=== PATIENT | female | born 1945 | race Caucasian/White ===

== ENCOUNTER 2019-01-14 21:49 | Emergency (ER) | payer MEDICARE, MEDICAID ==
[~2019-01-14] VITALS: Ht 157.5 cm; Wt 54.4 kg
[~2019-01-14 21:49] MED LIST: CITA10TA70 PO; DIVA500T PO; TYLENOL; topamax PO
--- OUTSIDE RECORDS SUMMARY | 2019-01-14 21:54 | XMS REPORT ---
Author Author SABA CONNORS Organization [facility] Address [address] [place] [address] Care Team Providers Care Material Cutter Name Role Phone SABA CONNORS Unavailable PROBLEMS Type Condition ICD9-CM Code MUF31-UE Code Onset Dates Condition Status SNOMED Code Problem Acquired hypothyroidism E03.9 Active 212223592 Problem Mixed hyperlipidemia E78.2 Active 403327343 Problem Late effect of stroke I69.30 Active 5006308325190 Problem Seizure disorder G40.909 Active 686309026 Problem Essential hypertension I10 Active 16055390 ALLERGIES No Information ENCOUNTERS Encounter Location Date Diagnosis [address] [address] Oct, Acquired hypothyroidism E03.9 ; Seizure disorder G40.909 ; Essential hypertension I10 and Mixed hyperlipidemia E78.[address] [address] Oct, [address] [address] Sep, Late effect of stroke I69.30 ; Acquired hypothyroidism E03.9 ; Seizure disorder G40.909 ; Essential hypertension I10 and Mixed hyperlipidemia E78.[address] [address] Sep, IMMUNIZATIONS No Known Immunizations SOCIAL HISTORY Never Assessed REASON FOR VISIT Med refill PLAN OF CARE VITAL SIGNS MEDICATIONS Medication Instructions Dosage Frequency Start Date End Date Duration Status Levetiracetam 500 MG Orally Twice a day 1 tablet 12h 06 Sep, 2018 30 day(s) Active RESULTS No Results PROCEDURES No Known procedures INSTRUCTIONS MEDICATIONS ADMINISTERED No Known Medications MEDICAL (GENERAL) HISTORY Type Description Date Medical History hyperlipidemia Medical History hypertension Medical History Hypothyroidism Medical History anemia Medical History acid reflux Medical History brain tumor Surgical History cholecystectomy Surgical History right hip replacement Surgical History brain tumor 1988 Surgical History leg surgery Surgical History exploratory laparoscopy Surgical History jaw wiring Hospitalization History surgical
--- OUTSIDE RECORDS SUMMARY | 2019-01-14 21:54 | XMS REPORT | Continuity of Care Document ---
Author Organization Unknown Address Unknown Allergies There is no data. Medications There is no data. Problems There is no data. Procedures There is no data. Results There is no data. Encounters ACCT No. Visit Date/Time Discharge Status Pt. Type Provider Facility Loc./Unit Complaint [id number] 11/15/2013 11:51:00 11/15/2013 23:59:59 CLS Outpatient [id number] 11/08/2013 12:34:00 11/08/2013 14:54:00 DIS Emergency
--- NOTE | 2019-01-14 22:01 | ED Fall/Injury ---
General Chief Complaint: Lower Extremity Stated Complaint: LT ANKLE INJ Source: patient, family (daughter and granddaughter) Exam Limitations: no limitations History of Present Illness Date Seen by Provider: January 14, 2019 Time Seen by Provider: 21:52 Initial Comments The patient presents to ER by private conveyance from home where she was staying with her daughter and had an unwitnessed fall where she lost her balance twisting her left ankle having a little swelling and pain mostly in the medial side of her foot, ankle and great toe. She denies striking her head or loss of consciousness. She is on aspirin. She has a history of stroke but no heart disease. She had a hemorrhagic and an ischemic stroke in the past. She's having no confusion weakness dysuria fevers chills cough shortness of breath or chest pain. No pain anywhere else besides her foot. Allergies and Home Medications Allergies Coded Allergies: No Known Drug Allergies (Unverified , 01/14/19) Home Medications Citalopram Hydrobromide 10 Mg Tablet, 10 MG PO DAILY, (Reported) Divalproex Sodium 500 Mg Tablet.dr, 500 MG PO TID, (Reported) [Tylenol 3] , Q4H Prescribed by: GREG THOMAS on 11/08/13 1447 [topamax] , 1 TAB PO BID, (Reported) Patient Home Medication List Home Medication List Reviewed: Yes Review of Systems Review of Systems Constitutional: No chills, No diaphoresis Eyes: Denies Blindness, Denies Drainage Ears, Nose, Mouth, Throat: denies ear pain, denies ear discharge Respiratory: No cough, No short of breath Cardiovascular: No chest pain, No edema Gastrointestinal: No abdominal pain, No constipation, No nausea Genitourinary: No discharge, No dysuria Past Gndhral-Kalors-Aoaojh Hx Patient Social History Recent Foreign Travel: No Contact w/Someone Who Travel: No Immunizations Up To Date Date of Pneumonia Vaccine: Aug 21, 2013 Date of Influenza Vaccine: Aug 21, 2013 Past Medical History Chronic Back Pain Physical Exam Vital Signs Vital Signs - First Documented 01/14/19 22:02 Temp 97.1 Pulse 78 Resp 18 B/P (MAP) 157/71 (99) Pulse Ox 98 O2 Delivery Room Air Capillary Refill : Height, Weight, BMI Height: 5'5" Weight: 151lbs. oz. 68.985965dq; BMI Method:Stated General Appearance: WD/WN, no apparent distress HEENT: PERRL/EOMI, normal ENT inspection, TMs normal, pharynx normal, other (negative for hemotympanum, alcocer sign or raccoon eyes) Cardiovascular: normal peripheral pulses, regular rate, rhythm, no edema Respiratory: no respiratory distress, no accessory muscle use Gastrointestinal: normal bowel sounds, non tender, soft Extremities: normal range of motion, non-tender, normal capillary refill Neurologic/Psychiatric: alert, normal mood/affect, oriented x 3, other Skin: normal color, warm/dry Carlos A Coma Score Best Eye Response: (4) Open Spontaneously Best Verbal Response: (5) Oriented Best Motor Response: (6) Obeys Commands Carlos A Total: 15 Progress/Results/Core Measures Results/Orders My Orders Orders - DAVION CONCEPCION Ct Head/Cervical Spine Wo (01/14/19 21:59) Ankle 3 View Left (01/14/19 21:59) Foot 3 View Left (01/14/19 21:59) Vital Signs/I&O 01/14/19 01/14/19 22:02 23:52 Temp 97.1 Pulse 78 68 Resp 18 18 B/P (MAP) 157/71 (99) 148/72 (97) Pulse Ox 98 98 O2 Delivery Room Air Room Air Diagnostic Imaging Diagonstic Imaging: CT (noncontrast) Plain Films/CT/US/NM/MRI: c-spine, head Comments No acute intracranial hemorrhage, mass effect, midline shift tumor or C-spine fracture or misalignment or subluxation. Reviewed: Reviewed by Me Diagonstic Imaging: Xray Plain Films/CT/US/NM/MRI: ankle (left), other (left foot) Comments No acute osseous abnormality. Joint spaces are maintained. Reviewed: Reviewed by Me Departure Impression Primary Impression: Sprain and strain of foot Additional Impression: Fall Qualified Codes: W19.XXXA - Unspecified fall, initial encounter Disposition: 01 HOME, SELF-CARE Condition: Stable Departure-Patient Inst. Decision time for Depature: 23:30 Referrals: MIGUEL SUERO MD (PCP/Family) Primary Care Physician Patient Instructions: Foot Sprain (DC) Add. Discharge Instructions: Ice your foot for the first 2 days. Wrap it with an Ángel bandage and keep it elevated. Stay off it when you don't need to use it. If you're still having significant pain 7-10 days out then follow up with your primary care doctor for reexamination for a possible occult fracture. Expect resolution in the first 2-3 weeks. Tylenol 1000 mg every 8 hours. All discharge instructions reviewed with patient and/or family. Voiced unde rstanding. DAVION CONCEPCION January 14, 2019 22:01
[2019-01-14 23:52] VITALS: BP 148/72
--- NOTE | 2019-01-15 06:31 | Diagnostic Imaging Report ---
PROCEDURE: CT head and CT cervical spine without contrast. TECHNIQUE: Multiple contiguous axial images were obtained through the brain and cervical spine without the use of intravenous contrast. Sagittal and coronal reformations through the cervical spine were then performed. Auto Exposure Controls were utilized during the CT exam to meet ALARA standards for radiation dose reduction. INDICATION: Fall, history of aneurysm. Comparison limited to images obtained during metabolic CT fusion brain PET performed in 2009. FINDINGS: CT head: Bilateral supratentorial right greater than left parenchymal calcifications are unchanged from the study of 2009. There are areas of adjacent parenchymal volume loss associated with these calcifications, chronic. Mild ventriculomegaly is congruent with the degree of sulcation likely reflective of a generalized component of atrophy having increased. No kyle hydrocephalus. There is no intracranial hemorrhage and no acute extra-axial fluid collection. No focal or generalized cerebral edema. Postsurgical changes to the calvarium chronic. No acute bony pathology revealed. No paranasal sinus air-fluid level. CT cervical spine: Cervical body heights maintained. The alignment anatomic. Paravertebral tissues showed no abnormality. No fluid collection. No cervical spinal fracture or dislocation. There are degenerative changes to the discs, endplates and facets throughout the cervical spine showing mild generalized progression from the comparison but no acute-appearing abnormality. IMPRESSION: 1. CT head: Mild progressive generalized cortical atrophy superimposed upon chronic coarse parenchymal calcifications with focal volume loss. No fracture deformity or acute pathology. No hemorrhage. 2. CT cervical spine: Progressive degenerative changes without fracture or traumatic malalignment, no acute-appearing abnormality. Dictated by: Dictated on workstation # [id number]
--- NOTE | 2019-01-15 07:02 | Diagnostic Imaging Report ---
Indication: Fall with pain Findings: Bony demineralization is noted which can make nondisplaced injuries radiographically imperceptible. A fracture cannot be identified. There is no dislocation. There is focal swelling about the ankle laterally. Impression: Swelling about the lateral ankle with likely bony demineralization. No fracture could be identified at three-view left foot. Dictated by: Dictated on workstation # [id number]
--- NOTE | 2019-01-15 07:04 | Diagnostic Imaging Report ---
Indication: Fall with pain Findings: Swelling about the ankle laterally and medially is present. No widening or disruption of the ankle mortise is found. There is bony demineralization which not only increases the risk of fracture but can make nondisplaced injuries radiographically imperceptible. No fracture line can be identified. The articular surfaces appeared smooth. Impression: Swelling about the ankle with bony demineralization. No identifiable fracture or widening of the mortise. Dictated by: Dictated on workstation # [id number]
== END 2019-01-14 23:52 | disposition home or self-care (01) ==
LOC: EDUNIT# 21:49 → ER FS 21:50
DX: S96.912A Strain of unspecified muscle and tendon at ankle and foot level, left foot, initial encounter (principal); R40.2142 Coma scale, eyes open, spontaneous, at arrival to emergency department; R40.2252 Coma scale, best verbal response, oriented, at arrival to emergency department; R40.2362 Coma scale, best motor response, obeys commands, at arrival to emergency department; Z86.73 Personal history of transient ischemic attack (TIA), and cerebral infarction without residual deficits; W19.XXXA Unspecified fall, initial encounter
CPT/HCPCS: 70450; 72125; 73610; 73630

== ENCOUNTER 2019-03-16 22:47 | Emergency (ER) | payer MEDICARE, MEDICAID ==
[~2019-03-16] VITALS: Ht 157.5 cm; Wt 54.9 kg
--- OUTSIDE RECORDS SUMMARY | 2019-03-16 22:54 | XMS REPORT | Continuity of Care Document ---
Author Organization Unknown Address Unknown Phone Unavailable Allergies Active Description Code Type Severity Reaction Onset Reported/Identified Relationship to Patient Clinical Status Yes No Known Drug Allergies [id number] Drug Allergy Unknown N/A 01/14/2019 Medications There is no data. Problems Date Dx Coded Attending Type Code Diagnosis Diagnosed By 11/08/2013 WILLIAM ELLIS, GREG Tomlinson Ot 729.5 PAIN IN LIMB 11/08/2013 WILLIAM ELLIS, GREG Tomlinson Ot 733.13 PATHOLOGIC FRACTURE, VERTEBRAE 01/14/2019 DAVION CONCEPCION MD Ot M25.472 EFFUSION, LEFT ANKLE 01/14/2019 JAMEY ELLIS, DAVION Leyva Ot R40.2142 COMA SCALE, EYES OPEN, SPONTANEOUS, EMR 01/14/2019 DAVION CONCEPCION MD Ot R40.2252 COMA SCALE, BEST VERBAL RESPONSE, ORIENT 01/14/2019 DAVION CONCEPCION MD Ot R40.2362 COMA SCALE, BEST MOTOR RESPONSE, OBEYS C 01/14/2019 DAVION CONCEPCION MD Ot S96.912A STRAIN OF UNSP MSL/TND AT ANK/FT LEVEL, 01/14/2019 DAVION CONCEPCION MD Ot W19.XXXA UNSPECIFIED FALL, INITIAL ENCOUNTER 01/14/2019 DAVION CONCEPCION MD Ot Z86.73 PRSNL HX OF TIA (TIA), AND CEREB INFRC W 01/15/2019 CUONG JACOBS MD Ot 722.52 LUMB/LUMBOSAC DISC DEGEN 01/15/2019 CUONG JACOBS MD Ot 805.4 FX LUMBAR VERTEBRA-CLOSE 01/15/2019 CUONG JACOBS MD Ot E928.9 ACCIDENT NOS 01/16/2019 CUONG JACOBS MD Ot 722.52 LUMB/LUMBOSAC DISC DEGEN 01/16/2019 CUONG JACOBS MD Ot 805.4 FX LUMBAR VERTEBRA-CLOSE 01/16/2019 CUONG JACOBS MD Ot E928.9 ACCIDENT NOS 01/18/2019 DAVION CONCEPCION MD Ot M25.472 EFFUSION, LEFT ANKLE 01/18/2019 DAVION CONCEPCION MD Ot R40.2142 COMA SCALE, EYES OPEN, SPONTANEOUS, EMR 01/18/2019 DAVION CONCEPCION MD Ot R40.2252 COMA SCALE, BEST VERBAL RESPONSE, ORIENT 01/18/2019 DAVION CONCEPCION MD Ot R40.2362 COMA SCALE, BEST MOTOR RESPONSE, OBEYS C 01/18/2019 DAVION CONCEPCION MD Ot S96.912A STRAIN OF UNSP MSL/TND AT ANK/FT LEVEL, 01/18/2019 DAVION CONCEPCION MD Ot W19.XXXA UNSPECIFIED FALL, INITIAL ENCOUNTER 01/18/2019 DAVION CONCEPCION MD Ot Z86.73 PRSNL HX OF TIA (TIA), AND CEREB INFRC W Procedures There is no data. Results Test Result Range TSH - 03/07/19 15:49 TSH 2.88 mIU/L 0.40-4.50 DIGOXIN - 03/07/19 15:49 DIGOXIN 1.0 mcg/L 0.8-2.0 Encounters ACCT No. Visit Date/Time Discharge Status Pt. Type Provider Facility Loc./Unit Complaint [id number] 03/07/2019 14:20:00 03/07/2019 23:59:59 CLS Outpatient SABA CONNORS [facility] [id number] 03/07/2019 14:20:00 Document Registration [id number] 01/14/2019 21:50:00 01/14/2019 23:52:00 DIS Emergency DAVION CONCEPCION MD [facility] ER FS LT ANKLE INJ [id number] 11/15/2013 11:51:00 11/15/2013 23:59:59 CLS Outpatient CUONG JACOBS MD [facility] RAD L-1 COMPRESSION FRACTURE [id number] 11/08/2013 12:34:00 11/08/2013 14:54:00 DIS Emergency GREG THOMAS MD [facility] ER PAIN IN LEG
--- OUTSIDE RECORDS SUMMARY | 2019-03-16 22:54 | XMS REPORT ---
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 Name Role Phone SABA CONNORS Unavailable PROBLEMS Type Condition ICD9-CM Code [id number] Code Onset Dates Condition Status SNOMED Code Problem Acquired hypothyroidism E03.9 Active 650520887 Problem Mixed hyperlipidemia E78.2 Active 942879477 Problem Late effect of stroke I69.30 Active 5789712030706 Problem Seizure disorder G40.909 Active 730450869 Problem Essential hypertension I10 Active 82040999 ALLERGIES No Known Allergies ENCOUNTERS Encounter Location Date Diagnosis [address] [address] Jan, [address] [address] 14 Oct, 2018 Acquired hypothyroidism E03.9 ; Seizure disorder G40.909 ; Essential hypertension I10 and Mixed hyperlipidemia E78.[address] [address] 07 Oct, [address] [address] 14 Sep, 2018 Late effect of stroke I69.30 ; Acquired hypothyroidism E03.9 ; Seizure disorder G40.909 ; Essential hypertension I10 and Mixed hyperlipidemia E78.[address] [address] 04 Sep, 2018 IMMUNIZATIONS No Known Immunizations SOCIAL HISTORY Never Assessed REASON FOR VISIT 3mo f/u PLAN OF CARE Activity Details Follow Up 3 Months,prn Reason:CHM VITAL SIGNS Height 5'2.5" in 2018-11-01 Weight 120 lbs 2018-11-01 BMI 21.6 kg/m2 2018-11-01 Blood pressure systolic 138 mmHg 2018-11-01 Blood pressure diastolic 70 mmHg 2018-11-01 MEDICATIONS Medication Instructions Dosage Frequency Start Date End Date Duration Status Lasix 20 MG Orally Once a day 1 tablet 24h Active Atorvastatin Calcium 40 MG Orally Once a day 1 tablet 24h Active Stool Softener 250 MG Orally 2 times a day 1 capsule as needed 12h 30 day(s) Active Mirtazapine 7.5 MG Orally Once a day 1 tablets at bedtime 24h 30 day(s) Active Digoxin 250 MCG Orally Once a day 1 tablet 24h 30 day(s) Active Levothyroxine Sodium 88 MCG Orally Once a day 1 tablet on an empty stomach in the morning 24h Active Ferrous Sulfate 325 (65 Fe) MG Orally Once a day 1 tablet 24h 30 day(s) Active Womens One Daily - Orally Once a day as directed 24h Active Protonix 40 MG Orally Once a day 1 tablet 24h 30 day(s) Active Lamotrigine 25 MG Orally Twice a day 3 capsules 12h 30 day(s) Active Aspirin Adult Low Dose 81 MG Orally Once a day 1 tablet 24h 30 day(s) Active Levetiracetam 500 MG Orally Twice a day 1 tablet 12h Sep, 30 day(s) Active Potassium Chloride ER 10 MEQ Orally Once a day 1 tablet with food 24h 30 day(s) Active Cartia XT 180 MG Orally Once a day 1 capsule 24h Active RESULTS No Results PROCEDURES Procedure Date Ordered Result Body Site [facility] VISIT ESTABLISHED PATIENT November 01, 2018 INSTRUCTIONS MEDICATIONS ADMINISTERED No Known Medications MEDICAL (GENERAL) HISTORY Type Description Date Medical History hyperlipidemia Medical History hypertension Medical History Hypothyroidism Medical History anemia Medical History acid reflux Medical History brain tumor Surgical History cholecystectomy Surgical History right hip replacement Surgical History brain tumor 1987 Surgical History leg surgery Surgical History exploratory laparoscopy Surgical History jaw wiring Hospitalization History surgical
--- NOTE | 2019-03-16 23:27 | ED Cough/URI ---
General Chief Complaint: Cough/Cold/Flu Symptoms Stated Complaint: COUGHING PHLEGM POST CHOKING Nursing Triage Note: PT CHOKED ON A PILL AROUND 2100 TONIGHT AND HAS BEEN COUGHING UP PHLEGM SINCE Sepsis Screen: No Definite Risk Source: patient, family Exam Limitations: physical impairment History of Present Illness Date Seen by Provider: Mar 16, 2019 Time Seen by Provider: 23:26 Initial Comments About two hours ago she was swallowing her pill with tea and is got stuck in her throat and she began to choke. Her daughter even tried [place] and the pill came out. The daughter then gave her milk and let her take the rest of her pills and she was able to do this and swallow all of this. She continued to complain of sore throat and cough a lot of phlegm according to the the daughter. She has had stroke in the past but recovered completely with re-hab and has no restrictions on her swallowing or food. She continues to c/o of sore throat. She also has a mild stridor or laryngitis which we all notice. Her lungs are completely clear to auscultation. Her VSS. Oxygen sat is 98%. After detailed discussion regarding the events; the issue was aspiration or esophageal obstruction or irritation. I gave her racemic epi which seemed to help the laryngitis a little with the predicted tachycardia. The clinical symptom is the production of phlegm. Although the daughter kept thinking this was coming from her lungs; I thik I was able to demonstrate that she was not coughing this up. She was using a gaging motion to try and get the phelgm out of her throat, as if something was caught there. CXR has questionable atelectic or density in the RLL but this is not confirmed by very careful auscultation. I do not think this is sputum and I think I have demonstrated to daughter's satisfaction. She has also swallow liquids completely, so I do not think this is obstructed esophagus. I think she has significant orpharyngeal irritation and is trying to gag an causing esophageal secretions to be expressed. I discussed options. I offered observation admission at [facility], but she flatly refuses. She lives [place] [facility]. I do not think this should be treated as clinical aspiration at this time. However, I have STRONGLY emphasized that she should be re-evaluated in the morning. Clinical manifestation of aspiration sh ould be apparent at that time. Timing/Duration: just prior to arrival Severity/Quality: moderate Prior Episodes/Possible Cause: no prior episodes Associated Symptoms: cough, shortness of breath, sore throat Allergies and Home Medications Allergies Coded Allergies: No Known Drug Allergies (Unverified , 01/14/19) Home Medications Citalopram Hydrobromide 10 Mg Tablet, 10 MG PO DAILY, (Reported) Divalproex Sodium 500 Mg Tablet.dr, 500 MG PO TID, (Reported) [Tylenol 3] , Q4H Prescribed by: GREG THOMAS on 11/08/13 1447 [topamax] , 1 TAB PO BID, (Reported) Patient Home Medication List Home Medication List Reviewed: Yes Review of Systems Review of Systems Constitutional: see HPI EENTM: hoarseness, throat pain Respiratory: cough, phlegm, short of breath, other Cardiovascular: no symptoms reported Gastrointestinal: no symptoms reported Genitourinary: no symptoms reported : No Musculoskeletal: no symptoms reported Skin: no symptoms reported Psychiatric/Neurological: Anxiety Hematologic/Lymphatic: No Symptoms Reported Immunological/Allergic: no symptoms reported All Other Systems Reviewed Negative Unless Noted: Yes Past Mvqbrjf-Kuvqem-Vgktru Hx Patient Social History Alcohol Use: Denies Use Recreational Drug Use: No 2nd Hand Smoke Exposure: No Recent Foreign Travel: No Contact w/Someone Who Travel: No Recent Infectious Disease Expo: No Recent Hopitalizations: No Physical Abuse: No Sexual Abuse: No Immunizations Up To Date Date of Pneumonia Vaccine: Aug 21, 2013 Date of Influenza Vaccine: Aug 21, 2013 Seasonal Allergies Seasonal Allergies: No Past Medical History Surgeries: No Respiratory: No Cardiac: No Neurological: Yes TIA Genitourinary: No Gastrointestinal: No Musculoskeletal: No Chronic Back Pain Endocrine: No HEENT: No Cancer: No Psychosocial: No Integumentary: No Blood Disorders: No Physical Exam Vital Signs - First Documented 03/16/19 22:54 Temp 98.3 Pulse 67 Resp 18 B/P (MAP) 171/58 (95) Pulse Ox 99 O2 Delivery Room Air Capillary Refill : Less Than 3 Seconds Height: 5'2.00" Weight: 121lbs. oz. 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 II-XII nml as tested, no motor/sensory deficits Skin: normal color, warm/dry Lymphatic: no adenopathy Progress/Results/Core Measures Suspected Sepsis Recent Fever Within 48 Hours: No Infection Criteria Present: None New/Unexplained Altered Menta: No Sepsis Screen: No Definite Risk SIRS Temperature:98.3 Pulse: 67 Respiratory Rate: 18 Blood Pressure 171 /58 Mean: 95 Results/Orders My Orders Orders - GARRICK MAXWELL MD Rt Epinephrine (Racemic Epinephrine 2.25 (03/16/19 23:45) Sodium Chl Inhalation (Rt-Sodium Chl Inh (03/16/19 23:32) Hypertonic Saline 3% Neb (Rt-Hypertonic (03/16/19 23:45) Sodium Chl Inhalation (Rt-Sodium Chl Inh (03/16/19 23:45) Svn Small Volume Nebulizer (03/16/19 23:42) Chest Pa/Lat (2 View) (03/17/19 00:03) Medications Given in ED Current Medications Medications Dose Ordered Sig/Santos Route Start Time Stop Time Status Last Admin Dose Admin Epinephrine 0.25 ml ONCE ONCE INH 03/16/19 23:45 03/16/19 23:46 DC 03/16/19 23:44 0.25 ML Sodium Chloride 3 ml ONCE ONCE IH 03/16/19 23:45 03/16/19 23:46 DC 03/16/19 23:45 3 ML Vital Signs/I&O 03/16/19 03/17/19 22:54 00:35 Temp 98.3 Pulse 67 76 Resp 18 18 B/P (MAP) 171/58 (95) 162/75 (104) Pulse Ox 99 97 O2 Delivery Room Air Room Air Capillary Refill : Less Than 3 Seconds Blood Pressure Mean: 95 Departure Impression Primary Impression: Choking due to foreign body Disposition: HOME, SELF-CARE Condition: Improved Departure-Patient Inst. Referrals: [facility] (PCP) Primary Care Physician SABA CONNORS APRN (Family) Primary Care Physician GARRICK MAXWELL MD Mar 16, 2019 23:26
[2019-03-16] MEDS ORDERED: RT-SODIUM CHL INHALATION 3 ML VIAL ONE (23:32)
[2019-03-16] MEDS ORDERED: RT-HYPERTONIC SALINE 3% 4 ML NEB INH PRN (23:45)
[2019-03-16] MEDS ORDERED: RT-epiNEPHrine (RACEMIC) 2.25% 0.5 ML VIAL INH ONE (23:45)
[2019-03-16] MEDS ORDERED: RT-SODIUM CHL INHALATION 3 ML VIAL IH ONE (23:45)
[2019-03-17 00:35] VITALS: BP 162/75
--- NOTE | 2019-03-17 09:26 | Diagnostic Imaging Report ---
EXAM: CHEST PA/LAT (2 VIEW) INDICATION: Choked on pill. COMPARISON: None. FINDINGS: No radiopaque foreign bodies. Normal heart size and pulmonary vascularity. No dense consolidation, pleural effusion or pneumothorax. No acute osseous findings. IMPRESSION: No acute cardiopulmonary findings. No radiopaque foreign bodies. Dictated by: Dictated on workstation # [id number]
== END 2019-03-17 00:41 | disposition home or self-care (01) ==
LOC: EDUNIT# 22:47 → ER FS 22:49
DX: T17.998A Other foreign object in respiratory tract, part unspecified causing other injury, initial encounter (principal); Z86.73 Personal history of transient ischemic attack (TIA), and cerebral infarction without residual deficits
CPT/HCPCS: 71046

== ENCOUNTER 2019-07-19 21:20 | Emergency (ER) | payer MEDICARE, MEDICAID ==
[~2019-07-19] VITALS: Ht 157.4 cm; Wt 51.0 kg
--- NOTE | 2019-07-19 21:48 | ED Trauma-Multisystem ---
General Chief Complaint: Trauma-Non Activation Stated Complaint: FALL,HEAD INJ Source of Information: Patient, Family Exam Limitations: No Limitations History of Present Illness Date Seen by Provider: Jul 19, 2019 Time Seen by Provider: 21:35 Initial Comments Was at home and accidentally fell backward hitting her head on a coffee table. No loss of consciousness, not dazed or confused after the event. Patient normally ambulates using a walker and presents to the ER this way in no distress. No complaints of any other pain or injury. Daughter states "Hx of a brain bleed in the past" Allergies and Home Medications Allergies Coded Allergies: No Known Drug Allergies (Unverified , 01/14/19) Home Medications Citalopram Hydrobromide 10 Mg Tablet, 10 MG PO DAILY, (Reported) Divalproex Sodium 500 Mg Tablet.dr, 500 MG PO TID, (Reported) [Tylenol 3] , Q4H Prescribed by: GREG THOMAS on 11/08/13 1447 [topamax] , 1 TAB PO BID, (Reported) Patient Home Medication List Home Medication List Reviewed: Yes Review of Systems Review of Systems Constitutional: see HPI; No dizziness, No fever, No malaise, No weakness Eyes: Denies Blurred Vision, Denies Photophobia Respiratory: No cough, No short of breath Cardiovascular: Denies Chest Pain, Denies Palpitations, Denies Syncope Gastrointestinal: No abdominal pain, No loss of appetite, No nausea, No vomiting Musculoskeletal: no symptoms reported; No back pain, No joint pain, No joint swelling, No muscle pain, No muscle weakness, No neck pain Skin: no symptoms reported; No change in color, No lesions, No lumps, No rash Psychiatric/Neurological: See HPI; Denies Cognitive Dysfunction, Denies Headache, Denies Numbness, Denies Tonic Clonic Seizures, Denies Unable to Move Lower Ext, Denies Unable to Move Upper Ext, Denies Weakness Past Pslgjjq-Cdeykk-Igueus Hx Past Med/Social Hx: Reviewed Nursing Past Med/Soc Hx Patient Social History 2nd Hand Smoke Exposure: No Recent Foreign Travel: No Contact w/Someone Who Travel: No Recent Hopitalizations: No Immunizations Up To Date Date of Pneumonia Vaccine: Aug 21, 2013 Date of Influenza Vaccine: Aug 21, 2013 Seasonal Allergies Seasonal Allergies: No Past Medical History Surgeries: No Respiratory: No Cardiac: No Neurological: Yes TIA Genitourinary: No Gastrointestinal: No Musculoskeletal: No Chronic Back Pain Endocrine: No HEENT: No Cancer: No Psychosocial: No Integumentary: No Blood Disorders: No Physical Exam Vital Signs Vital Signs - First Documented 07/19/19 21:30 Temp 35.7 Pulse 67 Resp 22 B/P (MAP) 171/72 (105) Pulse Ox 98 O2 Delivery Room Air Height, Weight, BMI Height: 5'2.00" Weight: 121lbs. oz. 54.538589sq; BMI Method:Stated General Appearance: No Apparent Distress, WD/WN Head: Contusions (small left occiput); No Active Bleeding, No Nazario's Sign, No Ecchymosis, No Lacerations, No Raccoon Eyes, No Tenderness Eyes: Bilateral Eye Normal Inspection, Bilateral Eye PERRL, Bilateral Eye EOMI Ears, Nose, Throat: Hearing Grossly Normal, No Evidence of ENT Injury Neck: Full Range of Motion, Normal Inspection, Non Tender, Supple Cardiovascular: Regular Rate, Rhythm, No Edema, No Gallop, No JVD, No Murmur, Normal Peripheral Pulses Respiratory: Chest Non Tender, Lungs Clear Back: Normal Inspection, No CVA Tenderness, No Vertebral Tenderness; No Vertebral Tenderness Extremity: Normal Capillary Refill, Normal Inspection, Normal Range of Motion, Non Tender, No Pedal Edema, Pelvis Stable Neurologic/Psychiatric: Alert, Oriented x3, No Motor/Sensory Deficits, Normal 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, 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 Norm as Tested; No Motor Weakness, No Sensory Deficit Skin: Normal Color, Warm/Dry Progress/Results/Core Measures Results/Orders My Orders Orders - ISIDRO BROWN DO Ct Head Wo (07/19/19 21:37) Vital Signs/I&O 07/19/19 07/19/19 21:30 22:15 Temp 35.7 35.8 Pulse 67 68 Resp 22 20 B/P (MAP) 171/72 (105) 170/68 Pulse Ox 98 98 O2 Delivery Room Air Room Air Departure Impression Primary Impression: Fall from ground level Additional Impression: Head contusion Qualified Codes: S00.93XA - Contusion of unspecified part of head, initial encounter Disposition: 01 HOME, SELF-CARE Condition: Stable Departure-Patient Inst. Referrals: [facility] (PCP) Primary Care Physician SABA CONNORS APRN (Family) Primary Care Physician Patient Instructions: Minor Head Injury (DC), Preventing Falls in the Older Adult ISIDRO BROWN DO Jul 19, 2019 21:48 POS
--- NOTE | 2019-07-19 22:00 | Diagnostic Imaging Report ---
PROCEDURE: CT head without contrast. TECHNIQUE: Multiple contiguous axial images were obtained through the brain without the use of intravenous contrast. Auto Exposure Controls were utilized during the CT exam to meet ALARA standards for radiation dose reduction. INDICATION: Head injury from a fall Ventricles are normal in size, shape and position. There are large parenchymal hemorrhages in the right posterior parietal lobe and in the left mid parietal lobe that were present on a previous study from 01/14/2019. There is no acute hemorrhage. There is no extra-axial fluid collections. IMPRESSION: Chronic parenchymal calcifications in both cerebral hemispheres. No acute abnormality seen. Dictated by: Dictated on workstation # [id number]
[2019-07-19 22:15] VITALS: BP 170/68
--- OUTSIDE RECORDS SUMMARY | 2019-08-14 17:52 | XMS REPORT | Continuity of Care Document ---
Author Organization Unknown Address Unknown Phone Unavailable Allergies Active Description Code Type Severity Reaction Onset Reported/Identified Relationship to Patient Clinical Status Yes No Known Drug Allergies [id number] Drug Allergy Unknown N/A 01/14/2019 Medications There is no data. Problems Date Dx Coded Attending Type Code Diagnosis Diagnosed By 11/08/2013 WILLIAM ELLIS, GREG Tomlinson Ot 729 .5 PAIN IN LIMB 11/08/2013 WILLIAM ELLIS, GREG Tomlinson Ot 733.13 PATHOLOGIC FRACTURE, VERTEBRAE 01/14/2019 JAMEY ELLIS, DAVION Leyva Ot M25.472 EFFUSION, LEFT ANKLE 01/14/2019 JAMEY [...] INITIAL ENCOUNTER 01/14/2019 DAVION CONCEPCION MD Ot Z86. 73 PRSNL HX OF TIA (TIA), AND CEREB INFRC W 01/15/2019 CUONG JACOBS MD Ot 722.5 2 LUMB/LUMBOSAC DISC DEGEN 01/15/2019 CUONG JACOBS MD Ot 805.4 FX LUMBAR VERTEBRA-CLOSE 01/15/2019 CUONG JACOBS MD Ot E928. 9 ACCIDENT NOS 01/16/2019 CUONG JACOBS MD Ot 722.5 2 LUMB/LUMBOSAC DISC DEGEN 01/16/2019 CUONG JACOBS MD Ot 805.4 FX LUMBAR VERTEBRA-CLOSE 01/16/2019 CUONG JACOBS MD Ot E928. 9 ACCIDENT NOS 01/18/2019 DAVION CONCEPCION MD Ot M25.472 EFFUSION, LEFT ANKLE 01/18/2019 JAMEY ELLIS, DAVION Leyva Ot R40.2142 COMA SCALE, EYES OPEN, SPONTANEOUS, EMR 01/18/2019 JAMEY ELLIS, DAVION Leyva Ot R40.2252 COMA SCALE, BEST VERBAL RESPONSE, ORIENT 01/18/2019 DAVION CONCEPCION MD Ot R40.2362 COMA SCALE, BEST MOTOR RESPONSE, OBEYS C 01/18/2019 DAVION CONCEPCION MD Ot S96.912A STRAIN OF [facility] MSL/TND AT ANK/FT LEVEL, 01/18/2019 DAVION CONCEPCION MD Ot W19.XXXA UNSPECIFIED FALL, INITIAL ENCOUNTER 01/18/2019 DAVION CONCEPCION MD, Ot Z86. 73 PRSNL HX OF TIA (TIA), AND CEREB INFRC W 03/17/2019 ALISSA ELLIS, GARRICK saleh R05 COUGH 03/17/2019 ALISSA ELLIS, GARRICK saleh T17.998A OTH FORN OBJECT IN RESP TRACT, PART [facility] 03/17/2019 GARRICK MAXWELL MD Z86.73 PRSNL HX OF TIA (TIA), AND CEREB INFRC W 03/20/2019 GARRICK MAXWELL MD R05 COUGH 03/20/2019 GARRICK MAXWELL MD T17.998A OTH FORN OBJECT IN RESP TRACT, PART [facility] 03/20/2019 GARRICK MAXWELL MD Z86.73 PRSNL HX OF TIA (TIA), AND CEREB INFRC W 07/19/2019 RAMÓNSTISIDRO BELTRAN DO Ot S00.93XA CONTUSION OF UNSPECIFIED PART OF HEAD, I 07/19/2019 ISIDRO BROWN DO Ot S09.90XA UNSPECIFIED INJURY OF HEAD, INITIAL ENCO 07/19/2019 ISIDRO BROWN DO Ot W01.190A FALL SAME LEV FROM SLIP/TRIP W STRIKE AG 07/19/2019 ISIDRO BROWN DO, Ot Z86.73 PRSNL HX OF TIA (TIA), AND CEREB INFRC W 07/24/2019 RAMÓNSTISIDRO BELTRAN DO Ot S00.93XA CONTUSION OF UNSPECIFIED PART OF HEAD, I 07/24/2019 ISIDRO BROWN DO Ot S09.90XA UNSPECIFIED INJURY OF HEAD, INITIAL ENCO 07/24/2019 ISIDRO BROWN DO Ot W01.190A FALL SAME LEV FROM SLIP/TRIP W STRIKE AG 07/24/2019 ISIDRO BROWN DO Ot Z86.73 PRSNL HX OF TIA (TIA), AND CEREB INFRC W Procedures There is no data. Results Test Result Range TSH - 03/07/19 15:49 TSH 2.88 mIU/L 0.40-4.50 DIGOXIN - 03/07/19 15:49 DIGOXIN 1.0 mcg/L 0.8-2.0 Encounters ACCT No. Visit Date/Time Discharge Status Pt. Type Provider Facility Loc./Unit Complaint [id number] 03/07/2019 14:20:00 03/07/2019 23:59: 59 CLS Outpatient SABA CONNORS [facility] [id number] 03/07/2019 14:20:00 Document Registration [id number] 07/19/2019 21:22:00 22:16:00 DIS Emergency NILDAANÍBALISIDRO ROLON DO [facility] ER FS FALL,HEAD INJ [id number] 03/16/2019 22:49:00 019 00:41:00 DIS Emergency ALISSA ELLIS, FEDERICO Leyva [facility] ER FS COUGHING PH LEGM [id number] 01/14/2019 21:50:00 019 23:52:00 DIS Emergency DAVION CONCEPCION MD [facility] ER FS LT ANKLE INJ [id number] 11/15/2013 11:51:00 014 23:59:59 CLS Outpatient ARLENE ELLIS, CUONG Layne [facility] RAD L-1 COMPRESSION FRACTUR E [id number] 11/08/2013 12:34:00 014 14:54:00 DIS Emergency WILLIAM ELLIS, GREG Tomlinson [facility] ER PAIN IN LEG
== END 2019-07-19 22:16 | disposition home or self-care (01) ==
LOC: EDUNIT# 21:20 → ER FS 21:22
DX: S00.93XA Contusion of unspecified part of head, initial encounter (principal); Z86.73 Personal history of transient ischemic attack (TIA), and cerebral infarction without residual deficits; W01.190A Fall on same level from slipping, tripping and stumbling with subsequent striking against furniture, initial encounter
CPT/HCPCS: 70450

== ENCOUNTER → 2021-04-16 | Outpatient (CLI) | payer MEDICARE, MEDICAID ==
--- NOTE | 2021-04-16 12:47 | Diagnostic Imaging Report ---
INDICATION: PERSISTENT COUGH COMPARISON: 03/16/2019 FINDINGS: Frontal and lateral views of the chest demonstrate normal heart size and pulmonary vascularity. The lungs are clear. There are no signs of infiltrate, pleural effusions or pneumothoraces. The visualized osseous structures show no acute abnormalities. IMPRESSION: 1. No acute process. No signs of infiltrates, effusions or pneumothoraces. Dictated by: Dictated on workstation # [id number]
== END ==
LOC: RAD FS 10:33
PROVIDERS: ATTEND Nurse Practitioner Family
DX: R05 Cough (principal)
CPT/HCPCS: 71046

== ENCOUNTER 2021-08-06 09:46 | Emergency (ER) | payer MEDICARE, MEDICAID ==
[~2021-08-06] VITALS: Ht 157.5 cm; Wt 54.4 kg
--- NOTE | 2021-08-06 10:17 | ED Fall/Injury ---
General Chief Complaint: Head/Cervical Problems Stated Complaint: HEAD INJ Source: patient, family, old records History of Present Illness Date Seen by Provider: Aug 06, 2021 Time Seen by Provider: 09:50 Initial Comments 75-year-old female presenting with family after having a standing height fall at home around 5:30 AM. She had lost her balance and fallen backwards. She hit the back of her head, neck, right side of her posterior chest. She denied losing consciousness. She denied any seizure activity. She has had no nausea, vomiting, change in vision, change in mentation. She has had no drainage from her nose or ears. She does have a history of seizures as well as a prior head bleed. Family was concerned about having recurrent head bleed since she had fallen and hit her head. She also has an abrasion to her right anterior leg that family had cleaned and applied a dressing to this morning. Unsure of when her last tetanus booster was administered. Location Injury Occurred: home Occurred: this morning (530 am) Severity: mild Injuries/Pain Location: head, neck, chest (right posterior chest/ribs), lower extremity (abrasion anterior right thigh) Context: lost balance Loss of Consciousness: no loss of consciousness Associated Symptoms (Fall): No Abdominal Pain, No Chest Pain, No Confusion, No Dizziness, No Headache, No Lightheadedness, No Muscle Spasms, No Nausea/Vomiting, No Neck Pain, No Ringing in Ears, No Seizures, No Shortness of Air, No Slurred Speech; Trouble Walking (chronic); No Vision Changes Allergies and Home Medications Allergies Coded Allergies: No Known Drug Allergies (Unverified , 01/14/19) Patient Home Medication List Home Medication List Reviewed: Yes Citalopram Hydrobromide (Celexa) 10 Mg Tablet, 10 MG PO DAILY, (Reported) Entered as Reported by: MIGUEL RIVERO on 11/08/13 1250 Divalproex Sodium (Depakote) 500 Mg Tablet.dr, 500 MG PO TID, (Reported) Entered as Reported by: MIGUEL RIVERO on 11/08/13 1250 [Tylenol 3] , Q4H Prescribed by: GREG THOMAS on 11/08/13 1447 [topamax] , 1 TAB PO BID, (Reported) Entered as Reported by: MIGUEL RIVERO on 11/08/13 1250 Review of Systems Review of Systems Constitutional: No chills, No dizziness, No fever Eyes: Denies Blurred Vision, Denies Photophobia, Denies Vision Changes Ears, Nose, Mouth, Throat: denies ear pain, denies ear discharge, denies nose discharge, denies epistaxis Respiratory: No cough Cardiovascular: No chest pain Gastrointestinal: No nausea, No vomiting Genitourinary: No dysuria Musculoskeletal: no symptoms reported Skin: change in color (Bruise to the right side of her posterior chest and ribs area), other (Small superficial abrasion to the right anterior thigh) Psychiatric/Neurological: Weakness (Generalized) Past Plfocms-Dfecez-Cqycpf Hx Seasonal Allergies Seasonal Allergies: No Past Medical History Surgery/Hospitalization HX: Seizures, intracranial hemorrhage, hypertension, GERD Surgeries: No Respiratory: No Cardiac: No Neurological: Yes TIA Genitourinary: No Gastrointestinal: No Musculoskeletal: No Chronic Back Pain Endocrine: No HEENT: No Cancer: No Psychosocial: No Integumentary: No Blood Disorders: No Physical Exam Vital Signs Vital Signs - First Documented 08/06/21 09:57 Temp 36.1 Pulse 70 Resp 16 B/P (MAP) 144/62 (89) Pulse Ox 100 O2 Delivery Room Air Capillary Refill : Height, Weight, BMI Height: 5'2.00" Weight: 121lbs. oz. 54.136699wa; 20.00 BMI Method:Stated General Appearance: no apparent distress, other (Appears older than stated age) HEENT: PERRL/EOMI, TMs normal, pharynx normal, other (Negative alcocer sign, negative raccoon sign, no CSF otorrhea, no CSF rhinorrhea) Neck: non-tender, full range of motion, supple, normal inspection Cardiovascular: normal peripheral pulses, regular rate, rhythm Respiratory: chest non-tender, lungs clear, normal breath sounds, no respiratory distress, no accessory muscle use Gastrointestinal: normal bowel sounds, non tender, soft, no pulsatile mass Rectal: deferred Back: no CVA tenderness, no vertebral tenderness Extremities: normal range of motion, non-tender, normal capillary refill Neurologic/Psychiatric: alert, oriented x 3 Skin: warm/dry, ecchymosis (Right posterior back and rib area) Carlos A Coma Score Best Eye Response: (4) Open Spontaneously Best Verbal Response: (5) Oriented Best Motor Response: (6) Obeys Commands Carlos A Total: 15 Progress/Results/Core Measures Results/Orders My Orders Orders - DEB LUGO MD Ct Head/Cervical Spine Wo (08/06/21 10:10) Ct Chest Wo (08/06/21 10:10) Dipht,Pertuss(Acell),Tet Adult (Boostrix (08/06/21 10:30) Medications Given in ED Current Medications Medications Dose Ordered Sig/Santos Route Start Time Stop Time Status Last Admin Dose Admin Diphtheria/ Tetanus/Acell Pertussis 0.5 ml ONCE ONCE IM 08/06/21 10:30 08/06/21 10:31 DC 08/06/21 10:34 0.5 ML Vital Signs/I&O 08/06/21 08/06/21 09:57 10:55 Temp 36.1 Pulse 70 67 Resp 16 18 B/P (MAP) 144/62 (89) 121/53 Pulse Ox 100 99 O2 Delivery Room Air Room Air Progress Progress Note #1: Progress Note Abrasion on her right leg was cleaned with chlorhexidine scrub soap and redressed with a large Band-Aid. Bacitracin/Polysporin ointment was also applied prior to applying the Band-Aid. Will obtain CT scan of the head, cervical spine and chest without contrast to evaluate for possible hemorrhage or fractures. Since she is otherwise at her baseline and has no other complaints will defer any other testing at this point. Progress Note #2: Time: 10:52 Progress Note No acute fractures or hemorrhage or lung injury seen on imaging. Reassure pt and family. Update tetanus booster ordered. Discharge to home to follow up with clinic for continued concerns. Diagnostic Imaging Diagonstic Imaging: CT Plain Films/CT/US/NM/MRI: chest Comments [facility]. [place], [place] NAME: SAPNA JUDGE [facility] REC#: [id number] PT STATUS: REG ER : 1945 PHYSICIAN: DEB LUGO MD ADMIT DATE: 08/06/21/ER FS Draft Date of Exam:08/06/21 CT CHEST WO PROCEDURE: CT chest without contrast. TECHNIQUE: Multiple contiguous axial images were obtained through the chest without the use of intravenous contrast. Auto Exposure Controls were utilized during the CT exam to meet ALARA standards for radiation dose reduction. INDICATION: Fall, posterior right chest pain. No priors. FINDINGS: No lung contusion, pulmonary laceration, hemothorax, pneumothorax or pneumomediastinum. No focal pleural hematoma and no rib fracture deformity. Sternum and manubrium intact. The diaphragms intact. Reconstruction views degraded by motion artifact. No appreciable thoracic spinal injury or traumatic malalignment. There is Is mild basilar partial atelectasis. Lungs otherwise clear. The visualized upper abdomen showed no free fluid or free air. No mass or lymphadenopathy. There is no thoracic aneurysm. IMPRESSION: Mild basilar atelectasis. No chest wall injury or findings of pulmonary parenchymal or pleural traumatic sequelae. Dictated on workstation # [id number] Dict: 08/06/21 1038 Trans: 08/06/21 1043 [id number] Interpreted by: LEDA NEAL Electronically signed by: Reviewed: Reviewed by Me Diagonstic Imaging: CT Plain Films/CT/US/NM/MRI: c-spine, head Comments NAME: SAPNA JUDGE [facility] REC#: [id number] PT STATUS: REG ER : 1945 PHYSICIAN: DEB LUGO MD ADMIT DATE: 08/06/21/ER FS Draft Date of Exam:08/06/21 CT HEAD/CERVICAL SPINE WO PROCEDURE: CT head and CT cervical spine without contrast. TECHNIQUE: Multiple contiguous axial images were obtained through the brain and cervical spine without the use of intravenous contrast. Sagittal and coronal reformations through the cervical spine were then performed. Auto Exposure Controls were utilized during the CT exam to meet ALARA standards for radiation dose reduction. INDICATION: Fall. Head and neck pain. Scalp contusion. COMPARISON: 07/19/2019. FINDINGS: CT head: Parenchymal calcifications are visualized, right greater than left, similar to the prior exam. There is decreased attenuation in the right frontoparietal region and extending into the more anterior right frontal lobe which appears increased compared to the prior exam. No evidence of acute intracranial hemorrhage. No hydrocephalus. Prior craniotomy changes are seen in the right parietal region. Scalp contusion is seen overlying the left parietal region. Retained secretions are seen in the right maxillary and ethmoid sinuses. The mastoid air cells are clear. CT cervical spine: No acute fracture or dislocation is seen in the cervical spine. No focal osseous lesions. Vertebral body heights are well-maintained. The craniocervical junction is well-maintained. Mild degenerative changes are seen in the cervical spine with disc osteophyte complexes and uncovertebral arthropathy. Soft tissues of the neck are unremarkable. The included lung apices are clear. IMPRESSION: 1. Stable calcifications in the parenchyma of the bilateral cerebral hemispheres, right greater than left. There is increase in edema in the white matter of the right frontal and parietal lobes which is nonspecific. Consider further evaluation with MRI brain with and without contrast. 2. No evidence of acute hemorrhage or hydrocephalus. 3. No acute fracture or dislocation in the cervical spine. 4. Scalp contusion overlying the left parietal lobe. No associated calvarial fracture. Dictated on workstation # [id number] Dict: 08/06/21 1037 Trans: 08/06/21 1047 [id number] Interpreted by: AWILDA RENTERIA DO Electronically signed by: Reviewed: Reviewed by Me Departure Impression Primary Impression: Contusion of right back wall of thorax, initial encounter Additional Impressions: Abrasion, right thigh, initial encounter Hematoma of occipital region of scalp Fall at home Qualified Codes: W19.XXXA - Unspecified fall, initial encounter; Y92.009 - Unspecified place in unspecified non-institutional (private) residence as the place of occurrence of the external cause Disposition: 01 HOME, SELF-CARE Condition: Stable Departure-Patient Inst. Decision time for Depature: 10:53 Referrals: [facility] (PCP) Primary Care Physician SABA CONNORS APRN (Family) Primary Care Physician Patient Instructions: Preventing Falls ED, Rib Fracture or Bruised Rib ED, Abrasions ED, Minor Contusion ED Add. Discharge Instructions: Keep abrasion on leg clean with soap and water. May change dressing twice a day as needed. Ice 10 to 15 minutes 3-4 times a day for the next few days to help with bruising and swelling on scalp and right-side of her back. Acetaminophen if needed for pain. Check back with primary provider for continued concerns. All discharge instructions reviewed with patient and/or family. Voiced understanding. DEB LUGO MD Aug 06, 2021 10:17
[2021-08-06] MEDS ORDERED: TETANUS,DIPTH,PERTUSS P/F (BOOSTRIX) 0.5 ML VIAL IM ONE (10:30)
--- NOTE | 2021-08-06 10:43 | Diagnostic Imaging Report ---
PROCEDURE: CT chest without contrast. TECHNIQUE: Multiple contiguous axial images were obtained through the chest without the use of intravenous contrast. Auto Exposure Controls were utilized during the CT exam to meet ALARA standards for radiation dose reduction. INDICATION: Fall, posterior right chest pain. No priors. FINDINGS: No lung contusion, pulmonary laceration, hemothorax, pneumothorax or pneumomediastinum. No focal pleural hematoma and no rib fracture deformity. Sternum and manubrium intact. The diaphragms intact. Reconstruction views degraded by motion artifact. No appreciable thoracic spinal injury or traumatic malalignment. There is Is mild basilar partial atelectasis. Lungs otherwise clear. The visualized upper abdomen showed no free fluid or free air. No mass or lymphadenopathy. There is no thoracic aneurysm. IMPRESSION: Mild basilar atelectasis. No chest wall injury or findings of pulmonary parenchymal or pleural traumatic sequelae. Dictated by: Dictated on workstation # [id number]
--- NOTE | 2021-08-06 10:47 | Diagnostic Imaging Report ---
PROCEDURE: CT head and CT cervical spine without contrast. TECHNIQUE: Multiple contiguous axial images were obtained through the brain and cervical spine without the use of intravenous contrast. Sagittal and coronal reformations through the cervical spine were then performed. Auto Exposure Controls were utilized during the CT exam to meet ALARA standards for radiation dose reduction. INDICATION: Fall. Head and neck pain. Scalp contusion. COMPARISON: 07/19/2019. FINDINGS: CT head: Parenchymal calcifications are visualized, right greater than left, similar to the prior exam. There is decreased attenuation in the right frontoparietal region and extending into the more anterior right frontal lobe which appears increased compared to the prior exam. No evidence of acute intracranial hemorrhage. No hydrocephalus. Prior craniotomy changes are seen in the right parietal region. Scalp contusion is seen overlying the left parietal region. Retained secretions are seen in the right maxillary and ethmoid sinuses. The mastoid air cells are clear. CT cervical spine: No acute fracture or dislocation is seen in the cervical spine. No focal osseous lesions. Vertebral body heights are well-maintained. The craniocervical junction is well-maintained. Mild degenerative changes are seen in the cervical spine with disc osteophyte complexes and uncovertebral arthropathy. Soft tissues of the neck are unremarkable. The included lung apices are clear. IMPRESSION: 1. Stable calcifications in the parenchyma of the bilateral cerebral hemispheres, right greater than left. There is increase in edema in the white matter of the right frontal and parietal lobes which is nonspecific. Consider further evaluation with MRI brain with and without contrast. 2. No evidence of acute hemorrhage or hydrocephalus. 3. No acute fracture or dislocation in the cervical spine. 4. Scalp contusion overlying the left parietal lobe. No associated calvarial fracture. Dictated by: Dictated on workstation # [id number]
[2021-08-06 10:55] VITALS: BP 121/53
== END 2021-08-06 11:01 | disposition home or self-care (01) ==
LOC: EDUNIT# 09:46 → ER FS 09:48
DX: S20.221A Contusion of right back wall of thorax, initial encounter (principal); S00.03XA Contusion of scalp, initial encounter; S70.311A Abrasion, right thigh, initial encounter; I10 Essential (primary) hypertension; R40.2410 Glasgow coma scale score 13-15, unspecified time; Z23 Encounter for immunization; Z86.73 Personal history of transient ischemic attack (TIA), and cerebral infarction without residual deficits; W22.8XXA Striking against or struck by other objects, initial encounter; Y92.009 Unspecified place in unspecified non-institutional (private) residence as the place of occurrence of the external cause
CPT/HCPCS: 70450; 71250; 72125; 90715

== ENCOUNTER 2021-08-11 14:33 | Emergency (ER) | payer MEDICARE, MEDICAID ==
[~2021-08-11] VITALS: Ht 157.5 cm; Wt 54.4 kg
--- NOTE | 2021-08-11 15:33 | ED General ---
General Chief Complaint: Back Problems Stated Complaint: BACKPAIN Nursing Triage Note: PT ARRIVED BY PRIVATE VEHICLE WITH CHIEF COMPLAINT OF BACK PAIN. PT'S DAUGHTER STATED SHE WAS SEEN ON MONDAY DUE TO A FALL ON MONDAY. THEY STATED THAT MONDAY NIGHT SHE HAD A STROKE, NO SLEEP AND SEVERE BACK PAIN. PT HAS NOT RECEIVED ANYTHING FOR PAIN UNTIL LAST NIGHT WHEN SHE WAS GIVEN TYLENOL AND TWICE TODAY GIVEN TIZANIDINE (PRESCRIBED BY PCP IN 2017). PT STATED HER PAIN IS A 5. PT DENIES ALLERGIES, SMOKING, DRINKING OR DRUG USE. Source of Information: Patient, Family History of Present Illness Date Seen by Provider: Aug 11, 2021 Time Seen by Provider: 15:24 Initial Comments 75 yo female presenting with her daughter after having increased pain in her back since fall 08/06 and recurrent fall 08/08. The daughter notes that she has had trouble with her speech and trouble with the right side of her body. She did not really notice this until Monday. She felt that the patient did have another stroke probably on Monday. She did not bring her in to be seen again because she knew that the patient was outside of treatment window. Last night she was having increased pain and could not get comfortable. She was up all night due to pain. The daughter gave her a dose of tizanidine that she had been prescribed previously as well as Tylenol but it still did not help her pain. This morning she had repeated doses of the tizanidine. However she did not repeat the Tylenol. She was concerned that the patient had a fracture or something seriously wrong because she usually has a very high tolerance for pain and the fact that she could not sleep all night due to pain made her concerned that she had a fracture or break in the bone somewhere. She also was concerned about trying to see if there was changes on her scan of her head to be consistent with a stroke. Timing/Duration: 4-5 Days Severity: Severe Modifying Factors: worse with Movement Associated Systoms: Chest Pain (right upper posterior chest/ribs); No Cough, No Diaphoresis, No Fever/Chills, No Headaches; Malaise; No Nausea/Vomiting, No Seizure, No Shortness of Air, No Syncope; Weakness (generalized but worse on right side of body) Allergies and Home Medications Allergies Coded Allergies: No Known Drug Allergies (Unverified , 01/14/19) Patient Home Medication List Home Medication List Reviewed: Yes Citalopram Hydrobromide (Celexa) 10 Mg Tablet, 10 MG PO DAILY, (Reported) Entered as Reported by: MIGUEL RIVERO on 11/08/13 1250 Divalproex Sodium (Depakote) 500 Mg Tablet.dr, 500 MG PO TID, (Reported) Entered as Reported by: MIGUEL RIVERO on 11/08/13 1250 Hydrocodone/Acetaminophen (Hydrocodone-Acetamin 5-325 mg) 1 Each Tablet, 1 TAB PO Q8H PRN for PAIN-SEVERE (8-10) Prescribed by: DEB LUGO on 08/11/211811 Tizanidine HCl (Tizanidine HCl) 2 Mg Tablet, 2 MG PO Q8H PRN for MUSCLE SPASMS Prescribed by: DEB LUGO on 08/11/211810 [Tylenol 3] , Q4H Prescribed by: GREG THOMAS on 11/08/13 1447 [topamax] , 1 TAB PO BID, (Reported) Entered as Reported by: MIGUEL RIVERO on 11/08/13 1250 Review of Systems Review of Systems Constitutional: see HPI EENTM: no symptoms reported Respiratory: no symptoms reported Cardiovascular: see HPI Gastrointestinal: no symptoms reported Genitourinary: no symptoms reported Musculoskeletal: see HPI, back pain (right sided upper chest/rib pain in the back, T and L spine pain) Skin: change in color (healing bruise to right upper posterior chest wall/ribs) Psychiatric/Neurological: Denies Headache; Weakness (generalized) Past Fflmljx-Ksjhur-Wertkj Hx Patient Social History Tobacco Use?: No Smoking Status: Never a Smoker Smokeless Tobacco Frequency: Never a User Use of E-Cig and/or Vaping Tristin: Never a User Substance use?: No Alcohol Use?: No Pt feels they are or have been: No Seasonal Allergies Seasonal Allergies: No Past Medical History Surgery/Hospitalization HX: Seizures, intracranial hemorrhage, hypertension, GERD Surgeries: No Respiratory: No Cardiac: No Neurological: Yes TIA Genitourinary: No Gastrointestinal: No Musculoskeletal: No Chronic Back Pain Endocrine: No HEENT: No Cancer: No Psychosocial: No Integumentary: No Blood Disorders: No Physical Exam Vital Signs Vital Signs - First Documented 08/11/21 14:40 Temp 35.9 Pulse 69 Resp 16 B/P (MAP) 127/57 (80) Pulse Ox 100 O2 Delivery Room Air Capillary Refill : Less Than 3 Seconds Height, Weight, BMI Height: 5'2.00" Weight: 121lbs. oz. 54.940446dd; 21.00 BMI Method:Stated General Appearance: No Apparent Distress, Chronically ill, Other (appears older than stated age) Neck: Full Range of Motion, Non Tender, Supple Respiratory: Lungs Clear, Normal Breath Sounds, No Accessory Muscle Use, No Respiratory Distress Cardiovascular: Regular Rate, Rhythm, Normal Peripheral Pulses Gastrointestinal: No Pulsatile Mass, Non Tender, Soft Back: Vertebral Tenderness (tender to palpation over Thoracic and Lumbar spine. No step off or crepitus) Extremity: Normal Capillary Refill, No Pedal Edema Neurologic/Psychiatric: Alert Skin: Warm/Dry, Ecchymosis (healing bruise to right upper posterior chest/ribs) Progress/Results/Core Measures Suspected Sepsis SIRS Temperature: Pulse: 69 Respiratory Rate: 16 Blood Pressure 127 /57 Mean: 80 Results/Orders My Orders Orders - DEB LUGO MD Ct Head/Cervical Spine Wo (08/11/21 15:50) Ct Chest/Abdomen/Pelvis Wo (08/11/21 15:50) Vital Signs/I&O 08/11/21 08/11/21 14:40 18:20 Temp 35.9 Pulse 69 68 Resp 16 18 B/P (MAP) 127/57 (80) 132/57 Pulse Ox 100 100 O2 Delivery Room Air Room Air Capillary Refill : Less Than 3 Seconds Blood Pressure Mean: 80 Progress Note #1: Progress Note Obtain CT scan of the head and cervical spine to see if there are any changes from last week. Obtain CT scan of the chest abdomen and pelvis to evaluate the ribs again as well as thoracic and lumbar spine to see if there were any evidence of fractures. Progress Note #2: Progress Note CT scan of the head continues to show chronic calcifications and some signs of edema. These were present on the with her previous film. Her CT of the chest abdomen pelvis did not show any acute rib fractures or pulmonary contusions. Her thoracic vertebrae seem to be intact. Her lumbar vertebrae show chronic changes with L1 compression fracture. There is no definite new acute fracture or dislocation. Counseled patient and daughter on findings. Advised to try stronger pain medication to help her symptoms. Check back to the clinic for continued concerns. Make sure to drink plenty of fluids to keep her from getting dehydrated. Diagnostic Imaging Diagonstic Imaging: CT Plain Films/CT/US/NM/MRI: c-spine, head [facility] [place], [place] NAME: SAPNA JUDGE REC#: [id number] PT STATUS: REG ER : 1945 PHYSICIAN: DEB LUGO MD ADMIT DATE: 08/11/21/ER FS Signed Date of Exam:08/11/21 CT HEAD/CERVICAL SPINE WO PROCEDURE: CT head and CT cervical spine without contrast. TECHNIQUE: Multiple contiguous axial images were obtained through the brain and cervical spine without the use of intravenous contrast. Sagittal and coronal reformations through the cervical spine were then performed. Auto Exposure Controls were utilized during the CT exam to meet ALARA standards for radiation dose reduction. INDICATION: Right-sided weakness, brain lesion. COMPARISON: 08/06/2021. CT HEAD: Again seen are bilateral parietal calcifications. There is a calcified mass in the mid right parietal lobe, which is stable in size, shape, and configuration. There is stable cerebral edema on the right compared to the 08/06/2020 examination with unchanged 3 mm right to left midline shift. There is no hemorrhage. The ventricular size is stable. No extra-axial fluid collection is seen. The bony calvarium and mastoids are clear. There is mucosal thickening in the right maxillary sinus. IMPRESSION: 1. Stable chronic calcific changes in the parietal lobes with a calcified mass and associated cerebral edema in the right parietal lobe, which appear stable. 2. No acute hemorrhage or ischemia identified. 3. Stable right to left midline shift. CT CERVICAL SPINE: Alignment is normal. There is no subluxation or fracture. Mild degenerative changes are seen throughout the disc spaces and facet joints. There is no osseous lesion. The central canal is grossly unremarkable. IMPRESSION: No traumatic malalignment or fracture. Dictated by: Dictated on workstation # [id number] Dict: 08/11/21 1640 Trans: 08/11/219 [id number] Interpreted by: BAIRON SCHULTZ Electronically signed by: BAIRON SCHULTZ 08/11/219 Reviewed: Reviewed by Me Diagonstic Imaging: CT Plain Films/CT/US/NM/MRI: chest, abdomen, pelvis Comments [facility]. [place], [place] NAME: SAPNA JUDGE REC#: [id number] PT STATUS: REG ER : 1945 PHYSICIAN: DEB LUGO MD ADMIT DATE: 08/11/21/ER FS Signed Date of Exam:08/11/21 CT CHEST/ABDOMEN/PELVIS WO CLINICAL INDICATION: Patient is status post fall on 08/06 and 08/08. Patient has right-sided weakness. EXAM: An axial CT scan of the chest, abdomen, and pelvis was performed without IV or enteric contrast. Sagittal and coronal reformatted images were created. Auto Exposure Controls were utilized during the CT exam to meet ALARA standards for radiation dose reduction. COMPARISON: MRI of the thoracic and lumbar spine dated 11/15/2013. Chest x-ray dated 04/16/2021. FINDINGS: BONES: There is stairstep artifact obscuring multiple ribs and sternum. There is no acute fracture involving the thoracic cage, thoracic spine, lumbar spine, sternum, sacrum, pelvis, or hips. There is a partially visualized intramedullary nail affixing the healed proximal right femur. There is a chronic compression deformity involving the L1 vertebra. CHEST CT: There is volume loss, parenchymal bands, and mild patchy opacities involving the posterior aspects of both lower lung alvarez. There is no pleural effusion or pneumothorax. The remainder of the lungs is clear. A nonspecific slightly heterogeneous thyroid gland is noted. There is no mediastinal or hilar lymphadenopathy. There is no mediastinal fluid collection or hematoma. There is no axillary lymphadenopathy. Cardiomegaly is noted. The extrathoracic soft tissues are unremarkable. ABDOMEN AND PELVIS CT: The gallbladder is surgically absent. The liver, spleen, pancreas, and adrenal glands are unremarkable. Both kidneys are unremarkable with no hydronephrosis, mass, or stone. The bladder is fluid-filled and unremarkable. Multiple calcified uterine fibroids are noted. There is a 2.0 cm circumscribed low-density area involving the expected right ovary region. The bilateral adnexal regions are otherwise grossly unremarkable. There is no intraabdominal free air or free fluid. There is a moderate amount of stool within the right colon and proximal transverse colon. There is a small amount of stool within the descending colon. The appendix is unremarkable. There is no lymphadenopathy. There is no intestinal obstruction. There are a few colonic diverticula involving the transverse colon. The stomach is probably decompressed with wall thickening. The extraabdominal and extrapelvic soft tissue structures are unremarkable. IMPRESSION: 1: There is no evidence of an acute thoracic, abdominal, or pelvic traumatic finding on this non-IV contrasted exam. There is no pleural effusion or pneumothorax. There is no intra-abdominal free air or free fluid. 2: There is no acute fracture involving the thoracic cage, thoracic spine, lumbar spine, sacrum, pelvis, or hips. 3: There is bilateral lung atelectasis. 4: There is a 2.0 cm circumscribed low-density area involving the right ovary region. Given the patient's age, a nonemergent pelvic ultrasound is suggested for better evaluation. Dictated by: Dictated on workstation # [id number] Dict: 08/11/21 1641 Trans: 08/11/21 1720 [id number] Interpreted by: OBED PETTY MD Electronically signed by: OBED PETTY MD 08/11/211719 Reviewed: Reviewed by Me Departure Impression Primary Impression: Acute exacerbation of chronic low back pain Additional Impressions: Back contusion Qualified Codes: S20.221D - Contusion of right back wall of thorax, subsequent encounter Brain edema Right ovarian cyst Disposition: 01 HOME, SELF-CARE Condition: Stable Departure-Patient Inst. Decision time for Depature: 18:07 Referrals: SABA CONNORS APRN (PCP) Primary Care Physician [facility] (Family) Primary Care Physician Patient Instructions: Opioids for Short-Term Treatment of Pain ED, Ovarian Cyst ED, Low Back Pain ED Add. Discharge Instructions: Try taking the pain medicine for severe pain and the muscle relaxer for spasms in your back. Check back with clinic about possible ultrasound of the pelvis as they saw a cyst or density in the area of the right ovary. Check back with clinic also about possible MRI if having continued problems with right side or more issues develop of concern for her brain All discharge instructions reviewed with patient and/or family. Voiced understanding. Scripts Tizanidine HCl (Tizanidine HCl) 2 Mg Tablet 2 MG PO Q8H PRN for MUSCLE SPASMS for 7 Days, #21 TAB 0 Refills Prov: DEB LUGO MD 08/11/21 Hydrocodone/Acetaminophen (Hydrocodone-Acetamin 5-325 mg) 1 Each Tablet 1 TAB PO Q8H PRN for PAIN-SEVERE (8-10) for 5 Days, #15 TAB 0 Refills Prov: DEB LUGO MD 08/11/21 DEB LUGO MD Aug 11, 2021 15:33
--- NOTE | 2021-08-11 16:48 | Diagnostic Imaging Report ---
PROCEDURE: CT head and CT cervical spine without contrast. TECHNIQUE: Multiple contiguous axial images were obtained through the brain and cervical spine without the use of intravenous contrast. Sagittal and coronal reformations through the cervical spine were then performed. Auto Exposure Controls were utilized during the CT exam to meet ALARA standards for radiation dose reduction. INDICATION: Right-sided weakness, brain lesion. COMPARISON: 08/06/2021. CT HEAD: Again seen are bilateral parietal calcifications. There is a calcified mass in the mid right parietal lobe, which is stable in size, shape, and configuration. There is stable cerebral edema on the right compared to the 08/06/2020 examination with unchanged 3 mm right to left midline shift. There is no hemorrhage. The ventricular size is stable. No extra-axial fluid collection is seen. The bony calvarium and mastoids are clear. There is mucosal thickening in the right maxillary sinus. IMPRESSION: 1. Stable chronic calcific changes in the parietal lobes with a calcified mass and associated cerebral edema in the right parietal lobe, which appear stable. 2. No acute hemorrhage or ischemia identified. 3. Stable right to left midline shift. CT CERVICAL SPINE: Alignment is normal. There is no subluxation or fracture. Mild degenerative changes are seen throughout the disc spaces and facet joints. There is no osseous lesion. The central canal is grossly unremarkable. IMPRESSION: No traumatic malalignment or fracture. Dictated by: Dictated on workstation # [id number]
--- NOTE | 2021-08-11 17:03 | Diagnostic Imaging Report ---
CLINICAL INDICATION: Patient is status post fall on 08/06 and 08/08. Patient has right-sided weakness. EXAM: An axial CT scan of the chest, abdomen, and pelvis was performed without IV or enteric contrast. Sagittal and coronal reformatted images were created. Auto Exposure Controls were utilized during the CT exam to meet ALARA standards for radiation dose reduction. COMPARISON: MRI of the thoracic and lumbar spine dated 11/15/2013. Chest x-ray dated 04/16/2021. FINDINGS: BONES: There is stairstep artifact obscuring multiple ribs and sternum. There is no acute fracture involving the thoracic cage, thoracic spine, lumbar spine, sternum, sacrum, pelvis, or hips. There is a partially visualized intramedullary nail affixing the healed proximal right femur. There is a chronic compression deformity involving the L1 vertebra. CHEST CT: There is volume loss, parenchymal bands, and mild patchy opacities involving the posterior aspects of both lower lung alvarez. There is no pleural effusion or pneumothorax. The remainder of the lungs is clear. A nonspecific slightly heterogeneous thyroid gland is noted. There is no mediastinal or hilar lymphadenopathy. There is no mediastinal fluid collection or hematoma. There is no axillary lymphadenopathy. Cardiomegaly is noted. The extrathoracic soft tissues are unremarkable. ABDOMEN AND PELVIS CT: The gallbladder is surgically absent. The liver, spleen, pancreas, and adrenal glands are unremarkable. Both kidneys are unremarkable with no hydronephrosis, mass, or stone. The bladder is fluid-filled and unremarkable. Multiple calcified uterine fibroids are noted. There is a 2.0 cm circumscribed low-density area involving the expected right ovary region. The bilateral adnexal regions are otherwise grossly unremarkable. There is no intraabdominal free air or free fluid. There is a moderate amount of stool within the right colon and proximal transverse colon. There is a small amount of stool within the descending colon. The appendix is unremarkable. There is no lymphadenopathy. There is no intestinal obstruction. There are a few colonic diverticula involving the transverse colon. The stomach is probably decompressed with wall thickening. The extraabdominal and extrapelvic soft tissue structures are unremarkable. IMPRESSION: 1: There is no evidence of an acute thoracic, abdominal, or pelvic traumatic finding on this non-IV contrasted exam. There is no pleural effusion or pneumothorax. There is no intra-abdominal free air or free fluid. 2: There is no acute fracture involving the thoracic cage, thoracic spine, lumbar spine, sacrum, pelvis, or hips. 3: There is bilateral lung atelectasis. 4: There is a 2.0 cm circumscribed low-density area involving the right ovary region. Given the patient's age, a nonemergent pelvic ultrasound is suggested for better evaluation. Dictated by: Dictated on workstation # [id number]
[2021-08-11] MEDS ORDERED: TIZA-169 PO (18:11)
[2021-08-11] MEDS ORDERED: ACHD5005 PO (18:11)
[2021-08-11 18:20] VITALS: BP 132/57
== END 2021-08-11 18:20 | disposition home or self-care (01) ==
LOC: EDUNIT# 14:33 → ER FS 14:36
DX: S30.0XXA Contusion of lower back and pelvis, initial encounter (principal); G93.6 Cerebral edema; N83.201 Unspecified ovarian cyst, right side; I10 Essential (primary) hypertension; G40.909 Epilepsy, unspecified, not intractable, without status epilepticus; Z86.73 Personal history of transient ischemic attack (TIA), and cerebral infarction without residual deficits; Z79.899 Other long term (current) drug therapy; W19.XXXA Unspecified fall, initial encounter
CPT/HCPCS: 70450; 71250; 72125; 74176

== ENCOUNTER 2021-09-15 19:22 | Emergency (ER) | payer MEDICARE, MEDICAID ==
[~2021-09-15 19:22] MED LIST changes: +ACHD5005 PO; +TIZA-169 PO
[2021-09-15 21:05] LABS: BASOPHILS # (AUTO) 0.1 10^3/uL (0.0-0.1); BASOPHILS % (AUTO) 1 % (0-10); EOSINOPHILS # (AUTO) 0.1 10^3/uL (0.0-0.3); EOSINOPHILS % (AUTO) 1 % (0-10); HEMATOCRIT 35 % (35-52); LYMPHOCYTES # (AUTO) 1.4 10^3/uL (1.0-4.0); LYMPHOCYTES % (AUTO) 19 % (12-44); MEAN CORPUSCULAR HEMOGLOBIN 31 pg (25-34); MEAN CORPUSCULAR HGB CONC 35 g/dL (32-36); MEAN CORPUSCULAR VOLUME 88 fL (80-99); MEAN PLATELET VOLUME 10.4 fL (9.0-12.2); MONOCYTES # (AUTO) 0.8 10^3/uL (0.0-1.0); MONOCYTES % (AUTO) 11 % (0-12); NEUTROPHILS % (AUTO) 67 % (42-75); PLATELET COUNT 197 10^3/uL (130-400); WHITE BLOOD COUNT 7.5 10^3/uL (4.3-11.0)
[2021-09-15 21:25] LABS: CALCIUM 9.7 MG/DL (8.5-10.1)
[2021-09-15 21:26] LABS: TOTAL PROTEIN 7.4 GM/DL (6.4-8.2)
[2021-09-15 21:28] LABS: BILIRUBIN,TOTAL 0.4 MG/DL (0.1-1.0)
[2021-09-15 21:30] LABS: CREATININE SERUM 0.83 MG/DL (0.60-1.30)
[2021-09-15 21:34] LABS: BILIRUBIN,URINE NEGATIVE (NEGATIVE); CLARITY,URINE CLEAR; COLOR,URINE YELLOW; GLUCOSE, URINE (UA) NEGATIVE (NEGATIVE); KETONES,URINE NEGATIVE (NEGATIVE); LEUKOCYTE ESTERASE ,URINE NEGATIVE (NEGATIVE); NITRITE,URINE NEGATIVE (NEGATIVE); PROTEIN,URINE NEGATIVE (NEGATIVE)
--- NOTE | 2021-09-15 21:37 | ED Neurological Problem ---
General Chief Complaint: General Problems/Pain Stated Complaint: UNABLE TO WALK/CONFUSED/RIGHT SIDE WEAKNESS Nursing Triage Note: TO ED VIA POV AND PERSONAL W/C TO ROOM 4. DAUGHTER AT BEDSIDE WITH PT AND STATES "SHE IS PROGRESSIVELY GETTING WORSE FOR A FEW WEEKS". DAUGHTER STATES HX STROKE AND RIGHT SIDED WEAKNESS. PT HAS NOT FOLLOWED UP WITH PCP SINCE LAST ER VISIT IN JULY IN [facility]. DAUGHTER STATES PT NEEDS MRI. WHEN PT ASKED HER CHIEF COMPLAINT THIS EVENING SHE STATES, "OH NOTHING REALLY". Source: patient, family (daughter) Exam Limitations: no limitations History of Present Illness Date Seen by Provider: Sep 15, 2021 Time Seen by Provider: 20:20 Initial Comments Patient to the ER by private conveyance with chief complaint of last month or so increased rate of falls, difficulty walking, confusion and occasional right- sided weakness. She has had a history of a brain bleed. 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 She was seen at [place] 5 weeks ago for a fall on the and told she had calcified mass with some swelling and needed an MRI set up. She had another fall on the and presented and had similar appearance on CT. Daughter states she talk to Dr. Connors in [place] about setting up an MRI and Dr. Connors said she would get it set up today but the daughter said never mind she would just come to the ER and have it done here. Prior to her fall in July she was walking with a walker but now requires assistance with transitioning from her daughter. 2 weeks ago primary care doctor did some blood work and a urinalysis all of which were unremarkable. Allergies and Home Medications Allergies Coded Allergies: No Known Drug Allergies (Unverified , 01/14/19) Patient Home Medication List Home Medication List Reviewed: Yes Citalopram Hydrobromide (Celexa) 10 Mg Tablet, 10 MG PO DAILY, (Reported) Entered as Reported by: MIGUEL RIVERO on 11/08/13 1250 Divalproex Sodium (Depakote) 500 Mg Tablet.dr 500 MG PO TID, (Reported) Entered as Reported by: MIGUEL RIVERO on 11/08/13 1250 Hydrocodone/Acetaminophen (Hydrocodone-Acetamin 5-325 mg) 1 Each Tablet, 1 TAB PO Q8H PRN for PAIN-SEVERE (8-10) Prescribed by: DEB LUGO on 08/11/211811 Tizanidine HCl (Tizanidine HCl) 2 Mg Tablet, 2 MG PO Q8H PRN for MUSCLE SPASMS Prescribed by: DEB LUGO on 08/11/211810 [Tylenol 3] , Q4H Prescribed by: GREG THOMAS on 11/08/13 1447 [topamax] , 1 TAB PO BID, (Reported) Entered as Reported by: MIGUEL RIVERO on 11/08/13 1250 Review of Systems Review of Systems Constitutional: No chills, No fever, No malaise Eyes: Denies Blindness, Denies Blurred Vision, Denies Drainage Ears, Nose, Mouth, Throat: denies ear pain, denies ear discharge Respiratory: No cough, No short of breath Cardiovascular: No edema; Hx of Intervention; No palpitations Gastrointestinal: No abdominal pain, No constipation, No diarrhea Genitourinary: No discharge, No dysuria; frequency Musculoskeletal: No back pain, No joint pain All Other Systems Reviewed Negative Unless Noted: Yes Past Iftzgvr-Ffgrlb-Xkecyr Hx Patient Social History Tobacco Use?: No Substance use?: No Alcohol Use?: No Seasonal Allergies Seasonal Allergies: No Past Medical History Surgery/Hospitalization HX: Seizures, intracranial hemorrhage, hypertension, GERD Surgeries: No Respiratory: No Cardiac: No Neurological: Yes TIA Genitourinary: No Gastrointestinal: No Musculoskeletal: No Chronic Back Pain Endocrine: No HEENT: No Cancer: No Psychosocial: No Integumentary: No Blood Disorders: No Physical Exam Vital Signs Vital Signs - First Documented 09/15/21 19:45 Temp 37.1 Pulse 64 Resp 16 B/P (MAP) 151/68 (95) Pulse Ox 100 O2 Delivery Room Air Capillary Refill : Less Than 3 Seconds Height, Weight, BMI Height: 5'2.00" Weight: 121lbs. oz. [id number]; 21.00 BMI Method:Stated General Appearance: WD/WN, no apparent distress HEENT: PERRL/EOMI, normal ENT inspection, TMs normal, pharynx normal Neck: non-tender, full range of motion, supple, normal inspection Respiratory: chest non-tender, lungs clear, normal breath sounds, no respirat ory distress, no accessory muscle use Cardiovascular: normal peripheral pulses, regular rate, rhythm Peripheral Pulses: 2+ Radial Pulses (R), 2+ Radial Pulses (L) Gastrointestinal: normal bowel sounds, non tender, soft Extremities: normal range of motion, non-tender, normal capillary refill Neurologic/Psychiatric: propagator II-XII nml as tested, no motor/sensory deficits, alert, normal mood/affect, oriented x 3 Crainal Nerves: normal hearing, normal speech, PERRL (3 mm contracts down to 2 mm with light) Coordination/Gait: normal finger to nose, other (Slow shuffling gait with difficulty transitioning without help.) Motor/Sensory: no motor deficit, no sensory deficit, other (NIH is 0 points) Reflexes: 2+ Bicep (R), 2+ Bicep (L), 2+ Knee (R), 2+ Knee (L) Skin: normal color, warm/dry Progress/Results/Core Measures Results/Orders Lab Results Laboratory Tests Test 09/15/21 20:59 09/15/21 21:28 Range/Units White Blood Count 7.5 4.3-11.0 10^3/uL Red Blood Count 3.94 3.80-5.11 10^6/uL Hemoglobin 12.0 11.5-16.0 g/dL Hematocrit 35 35-52 % Mean Corpuscular Volume 88 80-99 fL Mean Corpuscular Hemoglobin 31 25-34 pg Mean Corpuscular Hemoglobin Concent 35 32-36 g/dL Red Cell Distribution Width 12.4 10.0-14.5 % Platelet Count 197 130-400 10^3/uL Mean Platelet Volume 10.4 9.0-12.2 fL Immature Granulocyte % (Auto) 0 % Neutrophils (%) (Auto) 67 42-75 % Lymphocytes (%) (Auto) 19 12-44 % Monocytes (%) (Auto) 11 0-12 % Eosinophils (%) (Auto) 1 0-10 % Basophils (%) (Auto) 1 0-10 % Neutrophils # (Auto) 5.0 1.8-7.8 10^3/uL Lymphocytes # (Auto) 1.4 1.0-4.0 10^3/uL Monocytes # (Auto) 0.8 0.0-1.0 10^3/uL Eosinophils # (Auto) 0.1 0.0-0.3 10^3/uL Basophils # (Auto) 0.1 0.0-0.1 10^3/uL Immature Granulocyte # (Auto) 0.0 0.0-0.1 10^3/uL Sodium Level 133 L 135-145 MMOL/L Potassium Level 4.0 3.6-5.0 MMOL/L Chloride Level 95 L 98-107 MMOL/L Carbon Dioxide Level 27 21-32 MMOL/L Anion Gap 11 5-14 MMOL/L Blood Urea Nitrogen 11 7-18 MG/DL Creatinine 0.83 0.60-1.30 MG/DL Estimat Glomerular Filtration Rate 73 BUN/Creatinine Ratio 13 Glucose Level 100 70-105 MG/DL Calcium Level 9.7 8.5-10.1 MG/DL Corrected Calcium 9.7 8.5-10.1 MG/DL Total Bilirubin 0.4 0.1-1.0 MG/DL Aspartate Amino Transf (AST/SGOT) 24 5-34 U/L Alanine Aminotransferase (ALT/SGPT) 24 0-55 U/L Alkaline Phosphatase 88 40-136 U/L C-Reactive Protein High Sensitivity 0.20 0.00-0.50 MG/DL Total Protein 7.4 6.4-8.2 GM/DL Albumin 4.0 3.2-4.5 GM/DL Urine Color YELLOW Urine Clarity CLEAR Urine pH 6.0 5-9 Urine Specific [place] 1.010 L 1.016-1.022 Urine Protein NEGATIVE NEGATIVE Urine Glucose (UA) NEGATIVE NEGATIVE Urine Ketones NEGATIVE NEGATIVE Urine Nitrite NEGATIVE NEGATIVE Urine Bilirubin NEGATIVE NEGATIVE Urine Urobilinogen 0.2 < = 1.0 MG/DL Urine Leukocyte Esterase NEGATIVE NEGATIVE Urine RBC (Auto) TRACE-I H NEGATIVE Urine RBC 0-2 /HPF Urine WBC 0-2 /HPF Urine Crystals NONE /LPF Urine Bacteria TRACE /HPF Urine Casts NONE /LPF Urine Mucus NEGATIVE /LPF Urine Culture Indicated NO My Orders Orders - DAVION CONCEPCION Cbc With Automated Diff (09/15/21 20:03) Comprehensive Metabolic Panel (09/15/21 20:03) Hs C Reactive Protein (09/15/21 20:03) Ua Culture If Indicated (09/15/21 20:03) Ct Head/Cervical Spine Wo (09/15/21 20:38) Vital Signs/I&O 09/15/21 19:45 Temp 37.1 Pulse 64 Resp 16 B/P (MAP) 151/68 (95) Pulse Ox 100 O2 Delivery Room Air Blood Pressure Mean: 95 Progress Progress Note : Time: 21:35 Progress Note Reviewed the CT from last month and the patient has a 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 There is edema surrounding it involving about a third of that hemisphere and causing some midline shift. We will get a CT today to rule out a new bleed since she has had 2 falls since then one of them today. The patient is neurologically intact today so would not be able to qualify her for an emergent MRI. We have encouraged him to follow-up with the PCP to get the MRI set up outpatient. Examined for reasons why she is having edema. She is having difficulty with walking and transitioning but has 4 out of 5 motor strength symmetric all 4 extremities. Will obtain urine and blood look for other alternative explanations for her weakness. We will communicate this back to Dr. Connors. Diagnostic Imaging Diagonstic Imaging: CT Plain Films/CT/US/NM/MRI: c-spine, head Comments [facility] [place] NAME: SAPNA JUDGE [facility] REC#: [id number] PT STATUS: REG ER : 1945 PHYSICIAN: DAVION CONCEPCION MD ADMIT DATE: 09/15/21/ER Draft Date of Exam:09/15/21 CT HEAD/CERVICAL SPINE WO PROCEDURE: CT head and CT cervical spine without contrast. TECHNIQUE: Multiple contiguous axial images were obtained through the brain and cervical spine without the use of intravenous contrast. Sagittal and coronal reformations through the cervical spine were then performed. Auto Exposure Controls were utilized during the CT exam to meet ALARA standards for radiation dose reduction. INDICATION: Falls. COMPARISON: 08/11/2021. FINDINGS: Right posterior parietal peripherally calcified mass with perilesional vasogenic edema identical in appearance to previous exam. The mass effect with displacement of the midline structures of about 3 mm right to left, unchanged. Ventriculomegaly unchanged. Smaller left frontoparietal calcified lesion also unchanged. No findings of acute hemorrhage. No new abnormality. IMPRESSION: 1. CT head: Bilateral calcified intracranial lesions, the larger on the right, has a substantial amount of perilesional vasogenic edema with resultant right to left shift and mass effect upon hydrocephalic lateral ventricles. This is unchanged. No hemorrhage or new abnormality. 2. CT cervical spine: Cervical body heights maintained, alignment stable and anatomic. No cervical fracture. Dictated on workstation # [id number] Dict: 09/15/212151 Trans: 09/15/212222 [facility] [id number] Interpreted by: LEDA NEAL Electronically signed by: Reviewed: Reviewed by Me Departure Impression Primary Impression: Falls frequently Additional Impressions: Brain edema Brain lesion Disposition: HOME, SELF-CARE Condition: Stable Departure-Patient Inst. Decision time for Depature: 22:30 Referrals: SABA CONNORS APRN (PCP) Primary Care Physician [facility] (Family) Primary Care Physician Patient Instructions: Brain Swelling, Preventing Falls Add. Discharge Instructions: It is clear that she is having more frequent falls and they are likely due to the swelling on the brain from the lesion seen on CT scan. What is not clear is the origin of the lesion and an MRI would be the correct way to assess this. Your primary care provider can help set an MRI up in the next week or so. If she is having significantly worsening symptoms you may return to the ER for reexamination otherwise work on getting the MRI and follow-up results with Dr. Connors to know what the next step is. The swelling today is the same as it was last month and has not changed. All discharge instructions reviewed with patient and/or family. Voiced understanding. Copy Copies To 1: HAM POTTER TITUS J Sep 15, 2021 21:37
[2021-09-15 22:02] LABS: BACTERIA,URINE TRACE /HPF; RBC,URINE 0-2 /HPF; WBC,URINE 0-2 /HPF
--- NOTE | 2021-09-15 22:24 | Diagnostic Imaging Report ---
PROCEDURE: CT head and CT cervical spine without contrast. TECHNIQUE: Multiple contiguous axial images were obtained through the brain and cervical spine without the use of intravenous contrast. Sagittal and coronal reformations through the cervical spine were then performed. Auto Exposure Controls were utilized during the CT exam to meet ALARA standards for radiation dose reduction. INDICATION: Falls. COMPARISON: 08/11/2021. FINDINGS: Right posterior parietal peripherally calcified mass with perilesional vasogenic edema identical in appearance to previous exam. The mass effect with displacement of the midline structures of about 3 mm right to left, unchanged. Ventriculomegaly unchanged. Smaller left frontoparietal calcified lesion also unchanged. No findings of acute hemorrhage. No new abnormality. IMPRESSION: 1. CT head: Bilateral calcified intracranial lesions, the larger on the right, has a substantial amount of perilesional vasogenic edema with resultant right to left shift and mass effect upon hydrocephalic lateral ventricles. This is unchanged. No hemorrhage or new abnormality. 2. CT cervical spine: Cervical body heights maintained, alignment stable and anatomic. No cervical fracture. Dictated by: Dictated on workstation # [id number]
[2021-09-15 22:39] VITALS: BP 176/92
== END 2021-09-15 22:47 | disposition home or self-care (01) ==
LOC: EDUNIT# 19:22 → ER 19:25
DX: G93.6 Cerebral edema (principal); G93.9 Disorder of brain, unspecified; R29.6 Repeated falls; I10 Essential (primary) hypertension; G89.29 Other chronic pain; M54.9 Dorsalgia, unspecified; G40.909 Epilepsy, unspecified, not intractable, without status epilepticus; Z86.73 Personal history of transient ischemic attack (TIA), and cerebral infarction without residual deficits; Z79.891 Long term (current) use of opiate analgesic; Z79.899 Other long term (current) drug therapy
CPT/HCPCS: 36415; 70450; 72125; 80053; 81000; 85025; 86141

== ENCOUNTER 2021-09-24 21:40 | Emergency (ER) | payer MEDICARE, MEDICAID ==
[~2021-09-24] VITALS: Ht 157 cm; Wt 54.0 kg
--- NOTE | 2021-09-24 21:56 | ED General ---
General Stated Complaint: CONFUSION Source of Information: Patient, EMS, Old Records History of Present Illness Date Seen by Provider: Sep 24, 2021 Time Seen by Provider: 21:40 Initial Comments 75-year-old female presenting by EMS with complaints of the family being concerned that the patient was not acting herself and that she might have a UTI. She was recently at [facility] due to brain swelling and is now at home with family. She herself has no complaints and is oriented to person, place and time. She is saying she thinks it is silly to be here at night to be checked for a urine infection. She denies any nausea, vomiting, diarrhea, pain with urination, shortness of breath, cough, chest pain, abdominal pain. Associated Systoms: No Chest Pain, No Cough, No Diaphoresis, No Fever/Chills, No Headaches, No Loss of Appetite, No Malaise, No Nausea/Vomiting, No Rash, No Seizure, No Shortness of Air, No Syncope, No Weakness Allergies and Home Medications Allergies Coded Allergies: No Known Drug Allergies (Unverified , 01/14/19) Patient Home Medication List Home Medication List Reviewed: Yes Citalopram Hydrobromide (Celexa) 10 Mg Tablet, 10 MG PO DAILY, (Reported) Entered as Reported by: MIGUEL RIVERO on 11/08/13 1250 Divalproex Sodium (Depakote) 500 Mg Tablet.dr, 500 MG PO TID, (Reported) Entered as Reported by: MIGUEL RIVERO on 11/08/13 1250 Hydrocodone/Acetaminophen (Hydrocodone-Acetamin 5-325 mg) 1 Each Tablet, 1 TAB PO Q8H PRN for PAIN-SEVERE (8-10) Prescribed by: DEB LUGO on 08/11/211811 Tizanidine HCl (Tizanidine HCl) 2 Mg Tablet, 2 MG PO Q8H PRN for MUSCLE SPASMS Prescribed by: DEB LUGO on 08/11/211810 [Tylenol 3] , Q4H Prescribed by: GREG THOMAS on 11/08/13 1447 [topamax] , 1 TAB PO BID, (Reported) Entered as Reported by: MIGUEL RIVERO on 11/08/13 1250 Review of Systems Review of Systems Constitutional: No chills, No fever EENTM: no symptoms reported Respiratory: no symptoms reported Cardiovascular: no symptoms reported Gastrointestinal: no symptoms reported Genitourinary: no symptoms reported Musculoskeletal: no symptoms reported Skin: no symptoms reported Psychiatric/Neurological: No Symptoms Reported Past Yaungpx-Pxwqnf-Foginj Hx Seasonal Allergies Seasonal Allergies: No Past Medical History Surgery/Hospitalization HX: Seizures, intracranial hemorrhage, hypertension, GERD Surgeries: No Respiratory: No Cardiac: No Neurological: Yes TIA Genitourinary: No Gastrointestinal: No Musculoskeletal: No Chronic Back Pain Endocrine: No HEENT: No Cancer: No Psychosocial: No Integumentary: No Blood Disorders: No Physical Exam Vital Signs Vital Signs - First Documented 09/24/21 21:40 Temp 36.0 Pulse 64 Resp 15 B/P (MAP) 173/62 (99) Pulse Ox 100 O2 Delivery Room Air Capillary Refill : Height, Weight, BMI Height: 5'2.00" Weight: 121lbs. oz. 54.069016rx; 21.00 BMI Method:Stated General Appearance: No Apparent Distress, Chronically ill HEENT: PERRL/EOMI, Pharynx Normal Neck: Full Range of Motion, Normal Inspection, Non Tender, Supple Respiratory: Chest Non Tender, Lungs Clear, Normal Breath Sounds Cardiovascular: Regular Rate, Rhythm, Normal Peripheral Pulses Gastrointestinal: Normal Bowel Sounds, No Pulsatile Mass, Non Tender, Soft Rectal: Deferred Extremity: Normal Capillary Refill, No Pedal Edema Neurologic/Psychiatric: Alert, Oriented x3, laboratory scientist II-XII Norm as Tested Skin: Warm/Dry, Pallor Progress/Results/Core Measures Suspected Sepsis SIRS Temperature: Pulse: Respiratory Rate: Laboratory Tests 09/24/21 22:50: White Blood Count 7.1 Blood Pressure / Mean: Laboratory Tests 09/24/21 22:50: Creatinine 0.72, Platelet Count 236, Total Bilirubin 0.3 Results/Orders Lab Results Laboratory Tests Test 09/24/21 21:50 09/24/21 22:50 Range/Units Urine Color YELLOW Urine Clarity CLEAR Urine pH 6.5 5-9 Urine Specific [place] 1.010 L 1.016-1.022 Urine Protein NEGATIVE NEGATIVE Urine Glucose (UA) NEGATIVE NEGATIVE Urine Ketones NEGATIVE NEGATIVE Urine Nitrite NEGATIVE NEGATIVE Urine Bilirubin NEGATIVE NEGATIVE Urine Urobilinogen 0.2 < = 1.0 MG/DL Urine Leukocyte Esterase NEGATIVE NEGATIVE Urine RBC (Auto) NEGATIVE NEGATIVE Urine RBC NONE /HPF Urine WBC NONE /HPF Urine Crystals NONE /LPF Urine Bacteria TRACE /HPF Urine Casts PRESENT /LPF Urine Hyaline Casts 2-5 H /LPF Urine Mucus NEGATIVE /LPF Urine Culture Indicated NO White Blood Count 7.1 4.3-11.0 10^3/uL Red Blood Count 4.18 3.80-5.11 10^6/uL Hemoglobin 12.4 11.5-16.0 g/dL Hematocrit 36 35-52 % Mean Corpuscular Volume 87 80-99 fL Mean Corpuscular Hemoglobin 30 25-34 pg Mean Corpuscular Hemoglobin Concent 34 32-36 g/dL Red Cell Distribution Width 12.4 10.0-14.5 % Platelet Count 236 130-400 10^3/uL Mean Platelet Volume 10.0 9.0-12.2 fL Immature Granulocyte % (Auto) 0 % Neutrophils (%) (Auto) 61 42-75 % Lymphocytes (%) (Auto) 23 12-44 % Monocytes (%) (Auto) 12 0-12 % Eosinophils (%) (Auto) 2 0-10 % Basophils (%) (Auto) 1 0-10 % Neutrophils # (Auto) 4.3 1.8-7.8 X 10^3 Lymphocytes # (Auto) 1.7 1.0-4.0 X 10^3 Monocytes # (Auto) 0.9 0.0-1.0 X 10^3 Eosinophils # (Auto) 0.2 0.0-0.3 10^3/uL Basophils # (Auto) 0.1 0.0-0.1 10^3/uL Immature Granulocyte # (Auto) 0.0 0.0-0.1 10^3/uL Sodium Level 130 L 135-145 MMOL/L Potassium Level 4.3 3.6-5.0 MMOL/L Chloride Level 91 L 98-107 MMOL/L Carbon Dioxide Level 28 21-32 MMOL/L Anion Gap 11 5-14 MMOL/L Blood Urea Nitrogen 9 7-18 MG/DL Creatinine 0.72 0.60-1.30 MG/DL Estimat Glomerular Filtration Rate 87 BUN/Creatinine Ratio 13 Glucose Level 104 70-105 MG/DL Calcium Level 9.9 8.5-10.1 MG/DL Corrected Calcium 9.7 8.5-10.1 MG/DL Total Bilirubin 0.3 0.1-1.0 MG/DL Aspartate Amino Transf (AST/SGOT) 22 5-34 U/L Alanine Aminotransferase (ALT/SGPT) 20 0-55 U/L Alkaline Phosphatase 107 40-136 U/L Total Protein 7.4 6.4-8.2 GM/DL Albumin 4.2 3.2-4.5 GM/DL Lipase 37 8-78 U/L My Orders Orders - DEB LUGO MD Ua Culture If Indicated (09/24/21 21:50) Straight Cath For Spec.-Adult (09/24/21 21:50) Comprehensive Metabolic Panel (09/24/21 22:46) Lipase (09/24/21 22:46) Ed Iv/Invasive Line Start (09/24/21 22:46) Cbc With Automated Diff (09/24/21 22:46) Ns Iv 1000 Ml (Sodium Chloride 0.9%) (09/24/21 22:46) Vital Signs/I&O 09/24/21 09/24/21 09/25/21 21:40 22:30 00:25 Temp 36.0 Pulse 64 62 72 Resp 15 20 15 B/P (MAP) 173/62 (99) 140/53 134/60 Pulse Ox 100 98 98 O2 Delivery Room Air Room Air Room Air Capillary Refill : Progress Note #1: Progress Note Since the family had concerns that might be a UTI will obtain a urinalysis by catheter specimen. Patient has no complaints and unless the family is more specific on their concerns will wait and see what the urinalysis shows before any further testing. Progress Note #2: Progress Note Urinalysis did not show any evidence of dehydration or urinary tract infection. When discussing these results with the patient and daughter the daughter was concerned that she still had something wrong with her and felt that she needed further testing to evaluate her kidneys make sure the kidneys were trending down or something else was going on. She had reportedly been straining to urinate all day but not passing much urine. We will add on labs and give a liter of normal saline IV. Patient has had yet another CT scan last week so will defer further CT scans since she has an MRI set up for Monday. Progress Note #3: Progress Note The CBC and chemistry did not show any acute significant abnormalities. She is not showing signs of renal failure or dehydration off of her lab. She continues to be stable and have no complaints here in the ED. Reassured patient and daughter and advised to push fluids at home and keep appointment for MRI. Departure Impression Primary Impression: Urinary frequency Disposition: 01 HOME, SELF-CARE Condition: Stable Departure-Patient Inst. Decision time for Depature: 23:24 Referrals: [facility] [place] (PCP) Primary Care Physician SABA CONNORS APRN (Family) Primary Care Physician ANTHONY HOUSE MD Patient Instructions: Dysuria, Adult (DC) Add. Discharge Instructions: The labs did not show signs of issues with kidneys or signs of infection. Check with Urology for continued concerns or with Nurse Practitioner DEB Carlos MD Sep 24, 2021 21:56
[2021-09-24 22:01] LABS: BACTERIA,URINE TRACE /HPF; BILIRUBIN,URINE NEGATIVE (NEGATIVE); CLARITY,URINE CLEAR; COLOR,URINE YELLOW; GLUCOSE, URINE (UA) NEGATIVE (NEGATIVE); KETONES,URINE NEGATIVE (NEGATIVE); LEUKOCYTE ESTERASE ,URINE NEGATIVE (NEGATIVE); NITRITE,URINE NEGATIVE (NEGATIVE); PH,URINE 6.5 (5-9); PROTEIN,URINE NEGATIVE (NEGATIVE)
[2021-09-24] MEDS ORDERED: NS IV 1000 ML 1,000 ML IV STA (22:46)
[2021-09-24 22:57] LABS: BASOPHILS # (AUTO) 0.1 10^3/uL (0.0-0.1); BASOPHILS % (AUTO) 1 % (0-10); EOSINOPHILS # (AUTO) 0.2 10^3/uL (0.0-0.3); EOSINOPHILS % (AUTO) 2 % (0-10); HEMATOCRIT 36 % (35-52); HEMOGLOBIN 12.4 g/dL (11.5-16.0); LYMPHOCYTES # (AUTO) 1.7 X 10^3 (1.0-4.0); LYMPHOCYTES % (AUTO) 23 % (12-44); MEAN CORPUSCULAR HEMOGLOBIN 30 pg (25-34); MEAN CORPUSCULAR HGB CONC 34 g/dL (32-36); MEAN CORPUSCULAR VOLUME 87 fL (80-99); MONOCYTES # (AUTO) 0.9 X 10^3 (0.0-1.0); MONOCYTES % (AUTO) 12 % (0-12); NEUTROPHILS # (AUTO) 4.3 X 10^3 (1.8-7.8); NEUTROPHILS % (AUTO) 61 % (42-75); PLATELET COUNT 236 10^3/uL (130-400); WHITE BLOOD COUNT 7.1 10^3/uL (4.3-11.0)
[2021-09-24 23:14] LABS: ALBUMIN 4.2 GM/DL (3.2-4.5); BILIRUBIN,TOTAL 0.3 MG/DL (0.1-1.0); CALCIUM 9.9 MG/DL (8.5-10.1); CREATININE SERUM 0.72 MG/DL (0.60-1.30); POTASSIUM 4.3 MMOL/L (3.6-5.0); TOTAL PROTEIN 7.4 GM/DL (6.4-8.2)
[2021-09-25 00:25] VITALS: BP 134/60
== END 2021-09-25 00:25 | disposition home or self-care (01) ==
LOC: EDUNIT# 21:40 → ER FS 21:41
DX: R35.0 Frequency of micturition (principal); I10 Essential (primary) hypertension; G40.909 Epilepsy, unspecified, not intractable, without status epilepticus; G89.29 Other chronic pain; M54.9 Dorsalgia, unspecified; Z86.73 Personal history of transient ischemic attack (TIA), and cerebral infarction without residual deficits; Z79.891 Long term (current) use of opiate analgesic; Z79.899 Other long term (current) drug therapy
CPT/HCPCS: 36415; 51701; 80053; 81000; 83690; 85025

== ENCOUNTER 2023-03-30 16:50 | Emergency (ER) | payer MEDICARE, MEDICAID ==
[~2023-03-30 16:50] MED LIST changes: +AMLO2.5T4 PO; +ASPI-1238 PO; +ATOR40TA70 PO; +BISA5TAB20 PO; +DILT180C85 PO; +DILT240C91 PO; +FERR325T24 PO; +FURO20TA4 PO; +LAMO25TA8 PO; +LEVE500T6 PO; +LEVO88TA68 PO; +MIRT7.5T8 PO; +PANT40TA52 PO; +POTA-185 PO
--- NOTE | 2023-03-30 16:57 | ED Integumentary General ---
General Chief Complaint: Skin/Wound Problems Stated Complaint: FALL History of Present Illness Date Seen by Provider: Mar 30, 2023 Time Seen by Provider: 16:57 Initial Comments 77-year-old female is brought in by EMS after having a mild fall today. Patient slid slowly out of her recliner and scraped her left forearm causing a skin tear. Patient's family wanted her to come to the ER to take care of the skin tear. Patient denies pain, deformity, mobility issues, dizziness, headache, sensory loss, active bleeding. Allergies and Home Medications Allergies Coded Allergies: No Known Drug Allergies (Unverified , 01/14/19) Patient Home Medication List Home Medication List Reviewed: Yes Amlodipine Besylate (Amlodipine Besylate) 2.5 Mg Tablet, 2.5 MG PO DAILY Prescribed by: ADRIÁN MCGREGOR on 10/26/21 1010 Aspirin (Aspirin EC) 81 Mg Tablet.dr, 81 MG PO DAILY, (Reported) Entered as Reported by: ROBBIE RIVERS on 10/22/21 112 Atorvastatin Calcium (Atorvastatin Calcium) 40 Mg Tablet, 40 MG PO HS, (Reported) Entered as Reported by: ROBBIE RIVERS on 10/22/21 1129 Bisacodyl (Bisacodyl) 5 Mg Tablet.dr, 5 MG PO BID, (Reported) Entered as Reported by: ROBBIE RIVERS on 10/22/21 112 Diltiazem HCl (Diltiazem 24Hr ER) 240 Mg Cap.er.24h, 240 MG PO DAILY Prescribed by: ADRIÁN MCGREGOR on 10/26/21 1010 Ferrous Sulfate (Ferosul) 325 Mg Tablet, 325 MG PO BID, (Reported) Entered as Reported by: ROBBIE RIVERS on 10/22/21 112 Furosemide (Furosemide) 20 Mg Tablet, 20 MG PO DAILY, (Reported) Entered as Reported by: ROBBIE RIVERS on 10/22/21 112 Lamotrigine (Lamotrigine) 25 Mg Tablet, 75 MG PO BID, (Reported) Entered as Reported by: ROBBIE RIVERS on 10/22/21 112 Levetiracetam (Levetiracetam) 500 Mg Tablet, 1,000 MG PO BID Prescribed by: ADRIÁN MCGREGOR on 10/26/21 1010 Levothyroxine Sodium (Euthyrox) 88 Mcg Tablet, 88 MCG PO DAILY, (Reported) Entered as Reported by: ROBBIE RIVERS on 10/22/211128 Mirtazapine (Mirtazapine) 7.5 Mg Tablet, 7.5 MG PO HS, (Reported) Entered as Reported by: ROBBIE RIVERS on 10/22/211128 Pantoprazole Sodium (Pantoprazole Sodium) 40 Mg Tablet.dr, 40 MG PO DAILY, (Reported) Entered as Reported by: ROBBIE RIVERS on 10/22/211128 Potassium Chloride (K-Tab ER) 10 Meq Tablet.er, 10 MEQ PO DAILY, (Reported) Entered as Reported by: ROBBIE RIVERS on 10/22/211128 Review of Systems Review of Systems Constitutional: no symptoms reported EENTM: no symptoms reported Skin: see HPI, other (Skin tear) Past Sywskfg-Ikuslo-Gosubk Hx Patient Social History Smoking Status: Unknown if Ever Smoked Smokeless Tobacco Frequency: Unknown if Ever Used Use of E-Cig and/or Vaping dev: Unable to obtain Use of E-Cig and/or Vaping Tristin: Unknown if Ever Used Substance use?: Unable to obtain Alcohol Use?: Unable to obtain Pt feels they are or have been: Unable to obtain Immunizations Up To Date Tetanus Booster (TDap): Less than 5yrs First/Initial COVID19 Vaccinat: None Seasonal Allergies Seasonal Allergies: No Past Medical History Surgery/Hospitalization HX: Seizures, intracranial hemorrhage, hypertension, GERD Surgeries: No Respiratory: No Cardiac: No Neurological: Yes TIA Genitourinary: No Gastrointestinal: No Musculoskeletal: No Chronic Back Pain Endocrine: No HEENT: No Cancer: No Psychosocial: No Integumentary: No Blood Disorders: No Family Medical History Unable to obtain Physical Exam Vital Signs Vital Signs - First Documented 03/30/23 16:50 Temp 36.4 Pulse 66 Resp 17 B/P (MAP) 157/59 (91) O2 Delivery Room Air Capillary Refill : General Appearance: WD/WN, no apparent distress HEENT: PERRL/EOMI Neck: non-tender, full range of motion, supple Respiratory: chest non-tender, lungs clear Extremities: normal range of motion, non-tender, normal inspection, other (Left upper extremity, forearm shows a skin tear that is approximately 1 cm long, minimal bleeding, superficial, clean wound.) Neurologic/Psychiatric: alert, normal mood/affect, oriented x 3 Skin: normal color, other (See extremity exam) Progress/Results/Core Measures Results/Orders My Orders Orders - RAE QURESHI MD Ct Head Wo (03/30/23 17:15) Vital Signs/I&O 03/30/23 16:50 Temp 36.4 Pulse 66 Resp 17 B/P (MAP) 157/59 (91) O2 Delivery Room Air Progress Progress Note : Progress Note 1. LEFT FOREARM SKIN TEAR DUE TO FALL: - CT HEAD: No acute intracranial abnormality. 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 There continues to be mild right to left midline shift. Stable calcified lesion overlying the left frontal lobe extending into the left lateral ventricle. - Wound irrigated, cleaned, Antibiotic ointment applied and dressing placed - Follow up with PCP within hte next 7 days - Concussion precautions given - Pt is not on a blood thinner. -The patient was seen in the ED, and treated appropriately to presentation at a specific point in time. Patient is informed that there is a possibility that disease and illness can evolve and change in acuity rapidly or slowly after patient is discharged from the ER. Precautionary advice given to the patient for immediate return to ER if symptoms worsen or do not resolve, and to seek emergency care sooner rather than later. Pt also advised on the importance of PCP follow up and compliance with management and follow up plan with PCP and/or specialist, as this is part of the management plan. Pt verbally expressed understanding. Diagnostic Imaging Diagonstic Imaging: CT Plain Films/CT/US/NM/MRI: head Comments [facility] [place], [place] NAME: SAPNA JUDGE [facility] REC#: [id number] PT STATUS: REG ER : 1945 PHYSICIAN: RAE QURESHI MD ADMIT DATE: 03/30/23/ER FS Signed Date of Exam:03/30/23 CT HEAD WO EXAMINATION: CT head without contrast. TECHNIQUE: Multiple contiguous axial images were obtained through the brain without the use of intravenous contrast. All CT scans use one or more of the following dose optimizing techniques: Automated exposure control, MA and/or KvP adjustment based on patient size and exam type or iterative reconstruction. HISTORY: Head pain after fall. COMPARISON: 09/15/2021. FINDINGS: Stable enlargement of the ventricles. There continues to be complex partially calcified mass within the posterior right frontal and parietal lobes. There is prominent edema within the right frontal lobe white matter. There is stable mass effect with 0.5 cm of right to left midline shift. Additional calcification along the left frontal lobe extending into the ventricle. No acute intracranial hemorrhage or abnormal extra-axial fluid collections are present. There is significant cerebellar atrophy. Calcification of the intracranial ICAs. No hyperdense vessel. The calvarium is intact. The mastoid air cells are clear. The visualized paranasal sinuses are clear. The orbits are normal. IMPRESSION: 1. No acute intracranial abnormality. 2. 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 There continues to be mild right to left midline shift. 3. Stable calcified lesion overlying the left frontal lobe extending into the left lateral ventricle. Dictated by: Dictated on workstation # [id number] Dict: 03/30/231735 Trans: 03/30/231755 [id number] Interpreted by: CUONG GILLILAND DO Electronically signed by: CUONG GILLILAND DO 03/30/231755 Departure Impression Primary Impression: Skin tear of left forearm without complication Qualified Codes: S51.812A - Laceration without foreign body of left forearm, initial encounter Disposition: 01 HOME, SELF-CARE Condition: Stable Departure-Patient Inst. Referrals: SABA CONNORS APRN (PCP) Primary Care Physician [facility] (Family) Primary Care Physician Patient Instructions: Concussion in adults, Skin Abrasions, Wound Care Add. Discharge Instructions: - Pt does not have a concussion but concussion precautions given so that the family know what symptoms to look out for - Wound care instructions given - Follow up with PCP in 7 days All discharge instructions reviewed with patient and/or family. Voiced understanding. RAE QURESHI MD Mar 30, 2023 16:57
--- NOTE | 2023-03-30 17:41 | Diagnostic Imaging Report ---
EXAMINATION: CT head without contrast. TECHNIQUE: Multiple contiguous axial images were obtained through the brain without the use of intravenous contrast. All CT scans use one or more of the following dose optimizing techniques: Automated exposure control, MA and/or KvP adjustment based on patient size and exam type or iterative reconstruction. HISTORY: Head pain after fall. COMPARISON: 09/15/2021. FINDINGS: Stable enlargement of the ventricles. There continues to be complex partially calcified mass within the posterior right frontal and parietal lobes. There is prominent edema within the right frontal lobe white matter. There is stable mass effect with 0.5 cm of right to left midline shift. Additional calcification along the left frontal lobe extending into the ventricle. No acute intracranial hemorrhage or abnormal extra-axial fluid collections are present. There is significant cerebellar atrophy. Calcification of the intracranial ICAs. No hyperdense vessel. The calvarium is intact. The mastoid air cells are clear. The visualized paranasal sinuses are clear. The orbits are normal. IMPRESSION: 1. No acute intracranial abnormality. 2. 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 There continues to be mild right to left midline shift. 3. Stable calcified lesion overlying the left frontal lobe extending into the left lateral ventricle. Dictated by: Dictated on workstation # [id number]
[2023-03-30 18:56] VITALS: BP 128/67
== END 2023-03-30 18:56 | disposition home or self-care (01) ==
LOC: EDUNIT# 16:50 → ER FS 16:51
DX: S51.822A Laceration with foreign body of left forearm, initial encounter (principal); Z28.310 Unvaccinated for COVID-19; W08.XXXA Fall from other furniture, initial encounter
CPT/HCPCS: 70450